=== PATIENT | female | born 2000 | race Caucasian/White ===

== ENCOUNTER 2024-12-03 01:12 | Day surgery (SDC) | payer OTHER, SELFPAY ==
--- NOTE | 2024-11-19 16:36 | SUR.PREOP ---
Addendum entered by Christoph Shearer RN 12/01/24 09:37: Patient says no changes since preop interview. Informed to arrive at 1000 on 12-03-2024 for surgery at noon. Original Note: [facility] has started construction of its new state of the art ER which will open Spring 2026. With this, we anticipate parking may be a challenge for some our surgical patients and families. Parking spaces are limited but are available for all Surgical, obstetrics, and ER patients sharing this lot. If you arrive and find you are having a hard time finding a parking space, please note that we understand the challenges, please drive around the hospital and park near Hospital Entrance [address]. When you enter this entrance, you can ask a volunteer to direct or take you back to the surgical waiting area to check in. We appreciate everyone?s understanding of these expected challenges while we build for your future. Report to the Outpatient Waiting Room, entrance under the green pavilion located off [address], at time _730am on date __11/23/24 . Planned Procedure Time: __930am .? Time changes happen often and if your time is changed the preop area will call you the afternoon before. - You and your visitor will be asked to self-screen and do not enter if you have any COVID symptoms. Please call surgeon if you need to reschedule. - A mask is optional within the hospital at this time. Patients may have clear liquids (water, carbonated beverages, clear teas, apple juice) until 3 hours prior to surgery with a maximum of 20 ounces. - No food from midnight until time of surgery and no smoking, or chewing tobacco (or any form of nicotine). No chewing gum, candy or mints. Take only the following medications with a SIP of water on the morning of surgery: ___None DO NOT STOP ANY OF YOUR OTHER PRESCRIPTION MEDICATIONS PRIOR TO SURGERY EXCEPT THE FOLLOWING Hold all vitamins and supplements for 3 days per anesthesiologist. Medications to discontinue per physician None Date to take last dose___N/a Please no make-up, nail azeri, hairspray, perfume, deodorant, or body powder the day of surgery.? No jewelry (including any body piercings) or valuables the day of surgery, leave them at home.? Please take a shower or bath the night before, or the morning of, surgery with an antibacterial soap.? Wear comfortable, loose fitting clothing.? - Jewelry must be removed prior to entering the operating room.? Rings and piercings that are not removed may be cut off. - The hospital will not accept responsibility for valuables.? - Please leave all valuables, including medications, at home the day of surgery. If you are going home after surgery, a licensed hammer driver must drive you home.? - NO public transportation without another adult if you receive anesthesia. - We recommend that an adult stay with you for 24 hours following discharge. - We also recommend that you do not drive, make important decision, drink alcoholic beverages, or take any drugs that were not prescribed by your health care provider for at least 24 hours after your discharge time. For Pediatric surgeries, we recommend two adults accompany the child home. Follow any additional instructions given to you from your surgeon. Telephone instructions given to _Aliya___and asked if any additional questions and then verbalized understanding. Patient advised to call surgeon office or pre surgery nurse liaison [phone] if any additional questions.
[2024-11-19 16:39] VITALS: BMI 19.8
--- OUTSIDE RECORDS SUMMARY | 2024-11-23 01:08 | XMS_ITS | Clinical Summary ---
Author Organization [facility] Address [address] [place] [id number] Care Team Providers Care Tank Filler Name Role Phone Laurent Barros MD Primary Care Provider [phone] Allergies No known active allergies Medications vitamin, low iron, ( VITAMIN WITH IRON) 27-0.8 MG tablet Take 1 tablet by mouth daily. Active progesterone (ENDOMETRIN) [address] 1 tablet (100 mg total) vaginally 2 (two) times daily. Active Encounters Date Type Department Care Team Description 11/17/2024 5:53 AM CDT - 11/17/2024 10:20 AM CDT [facility] [place] [facility] [address] Pradeep Reyes MD Vaginal Bleeding Discharge Disposition: Home or Self Care (Routine Discharge) 11/17/2024 Travel 10/20/2024 7:17 AM CDT - 10/20/2024 10:00 AM CDT [facility] [place] [facility] [place] [address] Evita Shelley MD Vaginal Bleeding Discharge Disposition: Home or Self Care (Routine Discharge) 10/20/2024 Travel 10/19/2024 1:00 PM CDT - 10/19/2024 11:59 PM CDT Hospital Encounter [place] [address] Ivon Stanford MD Discharge Disposition: Home or Self Care (Routine Discharge) 10/18/2024 3:44 PM CDT - 10/18/2024 11:59 PM CDT Hospital [facility] [place] [facility] [place] [address] Ivon Stanford MD Discharge Disposition: Home or Self Care (Routine Discharge) 10/18/2024 Orders Only [place] [address] [place] [address] Ivon Stanford MD 10/18/2024 Travel 10/05/2024 10:14 AM CDT - 10/05/2024 11:59 PM CDT Hospital Encounter [place] [address] [place] [address] Nevaeh Rivera MD Discharge Disposition: Home or Self Care (Routine Discharge) 10/05/2024 Orders Only [place] [address] [place] [address] Nevaeh Rivera MD 10/05/2024 Travel 09/28/2024 12:40 PM CDT - 09/28/2024 11:59 PM CDT Hospital Encounter [place] [address] [place] [address] oMny Dobbs NP Discharge Disposition: Home or Self Care (Routine Discharge) 09/28/2024 Orders Only [place] [address] [place] [address] Mony Dobbs, MANUFACTURING ENGINEER CHIEF 09/27/2024 4:34 PM CDT - 09/27/2024 11:59 PM CDT Hospital Encounter [place] [address] [place] [address] Mony Dobbs MANUFACTURING ENGINEER CHIEF Discharge Disposition: Home or Self Care (Routine Discharge) 09/27/2024 Travel 09/25/2024 11:25 AM CDT - 09/25/2024 11:59 PM CDT Hospital Encounter [place] [address] [place] [address] Mony Dobbs MANUFACTURING ENGINEER CHIEF Discharge Disposition: Home or Self Care (Routine Discharge) 09/25/2024 Orders Only [place] [address] [place] [place] [address] Mony Dobbs, MANUFACTURING ENGINEER CHIEF 09/25/2024 Travel 09/21/2024 1:14 PM CDT - 09/21/2024 11:59 PM CDT Hospital Encounter [place] [facility] [address] [place] [address] Mony Dobbs NP Discharge Disposition: Home or Self Care (Routine Discharge) 09/21/2024 Travel 09/02/2024 1:25 PM CDT - 09/02/2024 11:59 PM CDT Hospital Encounter [place] [facility] [address] [place] [address] Mony Dobbs NP Discharge Disposition: Home or Self Care (Routine Discharge) 09/02/2024 Orders Only [facility] [address] [place] [address] Mony Dobbs NP 09/02/2024 Travel 08/31/2024 2:00 PM CDT - 08/31/2024 11:59 PM CDT Hospital Encounter [facility] [address] [place] [address] Nevaeh Rivera MD Discharge Disposition: Home or Self Care (Routine Discharge) 08/31/2024 Orders Only [facility] [address] [place] [address] Nevaeh Rivera MD 08/31/2024 Travel from Last 3 Months Family History Medical History Relation Comments No Known Problems Father No Known Problems Mother Relation Status Comments Father Alive Mother Alive Social History Tobacco Use Types Packs/Day Years Used Date Smoking Tobacco: Never Smokeless Tobacco: Never Alcohol Use Standard Drinks/Week Comments No 0 (1 standard drink = 0.6 oz pur e alcohol) AUDIT-C Answer Date Recorded Frequency of Alcohol Consumption Never 01/11/2019 Average Number of Drinks Not on file Frequency of Binge Drinking Not on file 03/2018 Comments Yes Sex and Gender Information Value Date Recorded Sex Assigned at Female 03/17/2024 3:13 PM COMPOSING ROOM SUPERVISOR Legal Sex Female 5:48 PM COMPOSING ROOM SUPERVISOR Gender Identity Not on file Sexual Orientation Not on file Last Filed Vital Signs Vital Sign Reading Time Taken Comments Blood Pressure 103/62 11/17/2024 10:15 AM CDT Pulse 98 11/17/2024 6:01 AM CDT Temperature 36.4 C (97.6 F) 11/17/2024 6:12 AM CDT Respiratory Rate 16 11/17/2024 10:15 AM CDT Oxygen Saturation 100% 11/17/2024 10:15 AM CDT Inhaled Oxygen Concentration - - Weight 61.7 kg (136 lb) 11/17/2024 6:01 AM CDT Height 170.2 cm (5' 7) 11/17/2024 6:01 AM CDT Body Mass Index 21.3 11/17/2024 6:01 AM CDT Plan of Treatment Health Maintenance Due Date Last Done Comments Annual Physical 2005 HPV Vaccines (1 - 3-dose series) 2017 Meningococcal B Vaccine (1 of 2 - Standard) 2018 Hepatitis C 2020 Chlamydia Screening Females ages 16-24 12/24/2022 12/24/2021 DTaP, Tdap and Td Vaccines (6 - Td or Tdap) 09/17/2023 09/16/2013, 08/05/2003, 2002, Additional history exists COVID-19 Vaccine ( season) 2024 Influenza Adult (#1) 2024 12/04/2015, 11/23/2014, 11/23/2013, Additional history exists Cervical Cancer Screening Pap Smear (Age 21 to 29) Every 3 Years 12/24/2024 12/24/2021 Cervical Cancer Screening 12/24/2024 RSV Immunization or 60+ Years (1 - 1-dose 75+ series) 2077 Pneumococcal Vaccine: Pediatrics (0 to 5 Years) and At-Risk Patients (6 to 49 Years) Aged Out 2002, 2002, 2002 No longer eligible based on patient's age to complete this topic Hepatitis B Vaccines Completed 05/12/2003, 2002, 2002 Meningococcal Vaccine Completed 10/29/2019, 014 Hepatitis A Vaccines Aged Out No long er eligible based on patient's age to complete this topic RSV Immunizations Under 20 Months Aged Out No longer eligible based on patient's age to complete this topic Procedures Procedure Name Priority Date/Time Associated Diagnosis Comments US OB TRANSVAG STAT 11/17/2024 9:07 AM CDT TYPE & SCREEN STAT 11/17/2024 6:15 AM CDT POCT GLUCOSE - DOCKED DEVICE Routine 11/17/2024 6:10 AM CDT HC HCG QN STAT 11/17/2024 6:07 AM CDT COMPREHENSIVE METABOLIC PANEL STAT 11/17/2024 6:07 AM CDT PARTIAL THROMBOPLASTIN TIME,PTT STAT 11/17/2024 6:07 AM CDT PROTHROMBIN TIME, VENOUS STAT 11/17/2024 6:07 AM CDT CBC W/DIFF AUTOMATED STAT 11/17/2024 6:07 AM CDT US OB TRANSVAG STAT 10/20/2024 9:00 AM CDT HC URINALYSIS AUTO W/MICRO STAT 10/20/2024 7:50 AM CDT HC HCG QN STAT 10/20/2024 7:46 AM CDT BASIC METABOLIC PANEL STAT 10/20/2024 7:46 AM CDT CBC W/DIFF AUTOMATED STAT 10/20/2024 7:46 AM CDT US OB <14WKS TA+TV Routine 10/19/2024 2: 24 PM CDT 1st trimester screening (HHS/HCC) Encounter for supervision of normal first in first trimester (HHS/HCC) URINE BACTERIA CULTURE Routine 4:15 PM CDT Amenorrhea, unspecified TYPE & SCREEN Routine 10/18/2024 4:10 PM CDT Amenorrhea, unspecified CBC, AUTO, NO DIFF Routine 10/18/2024 4: 10 PM CDT Amenorrhea, unspecified HC HCG QN Routine 10/18/2024 4:10 PM CDT Amenorrhea, unspecified SYPHILIS AB (DIAGNOSTIC) WITH CASCADING REFLEX Routine 10/18/2024 4:10 PM CDT Amenorrhea, unspecified VARICELLA ZOSTER IGG Routine 10/18/2024 4:10 PM CDT Amenorrhea, unspecified MISCELLANEOUS LAB TEST Routine 4:10 PM CDT Amenorrhea, unspecified RUBELLA IGG Routine 10/18/2024 4:10 PM CDT Amenorrhea, unspecified HIV 1 ANTIGEN(S), WITH HIV-1 AND HIV-2 ANTIBODIES Routine 10/18/2024 4:10 PM CDT Amenorrhea, unspecified HEPATITIS B SURFACE AG, EIA Routine 10/18/2024 4:10 PM CDT Amenorrhea, unspecified MISCELLANEOUS LAB TEST Routine 4:10 PM CDT Amenorrhea, unspecified HC HCG QN Routine 10/05/2024 10:17 AM CDT Back pain affecting in first trimester (HHS/HCC) HC HCG QN Routine 09/28/2024 12:46 PM CDT History of miscarriage PROGESTERONE Routine 09/27/2024 4:42 PM CDT History of miscarriage HC HCG QN Routine 09/27/2024 4:42 PM CDT History of miscarriage PROGESTERONE Routine 09/25/2024 11:39 AM CDT History of miscarriage HC HCG QN Routine 09/25/2024 11:39 AM CDT History of miscarriage US PELVIC NON OB COMP TA+TV Routine 09/21/2024 2:15 PM CDT Ovarian cyst, right PROGESTERONE Routine 09/02/2024 1:48 PM CDT History of miscarriage HC HCG QN Routine 09/02/2024 1:48 PM CDT History of miscarriage HC HCG QN Routine 08/31/2024 2:07 PM CDT Irregular menses from Last 3 Months Results * US OB TRANSVAG (11/17/2024 9:07 AM CDT) Only the most recent of2 resultswithin the time period is included. Anatomical Region Laterality Modality Abdomen, Pelvis Ultrasound 11/17/2024 9:53 AM CDT Impressions 11/17/2024 9:57 AM CDT IMPRESSION: 1. Findings compatible with spontaneous . Small amount of heterogeneous material in the endometrial cavity is nonspecific. 2. Unremarkable appearing ovaries. Ordered By: KLEBER NOEL Interpreted By: Roman Harman MD, 11/17/2024 9:53 AM Narrative 11/17/2024 9:57 AM CDT [address] [place] [address] Examination: OB ultrasound. Exam time: 0833 hours. Clinical history: 11 weeks gestational age by dates. Vaginal bleeding. Comparison: 10/20/2024. Technique: Endovaginal grayscale and color Doppler images including spectral analysis. Findings: The uterus measures 11 cm in length. No myometrial abnormality is identified. The previously evident intrauterine gestation is no longer present, compatible with spontaneous . There is some heterogeneous material in the endometrial cavity, nonspecific. Both ovaries are identified. The right ovary measures 3.3 cm in greatest dimension. The left ovary measures 4.2 cm in greatest dimension. Flow to both ovaries is documented on color Doppler with normal appearing spectra. Follicles are present bilaterally. No adnexal mass or fluid collection is identified. Procedure Note Roman Harman MD - 11/17/2024 [facility] [address] [place] [address] Examination: OB ultrasound. Exam time: 0833 hours. Clinical history: 11 weeks gestational age by dates. Vaginal bleeding. Comparison: 10/20/2024. Technique: Endovaginal grayscale and color Doppler images includingspectral analysis. Findings: The uterus measures 11 cm in length. No myometrial abnormalityis identified. The previously evident intrauterine gestation is no longerpresent, compatible with spontaneous . There is some heterogeneousmaterial in the endometrial cavity, nonspecific. Both ovaries areidentified. The right ovary measures 3.3 cm in greatest dimension. Theleft ovary measures 4.2 cm in greatest dimension. Flow to both ovaries isdocumented on color Doppler with normal appearing spectra. Follicles arepresent bilaterally. No adnexal mass or fluid collection is identified. IMPRESSION: 1. Findings compatible with spontaneous . Small amount ofheterogeneous material in the endometrial cavity is nonspecific. 2. Unremarkable appearing ovaries. Ordered By: KLEBER NOEL Interpreted By: Roman Harman MD, 11/17/2024 9:53 AM us Kleber Noel DO ULTRASOUND Final Result * TYPE AND SCREEN (11/17/2024 6:15 AM CDT) Only the most recent of2 resultswithin the time period is included. ABO/RH O POSITIVE 11/17/2024 7:24 AM CDT [facility] ANTIBODY SCREEN NEGATIVE 11/17/2024 7:24 AM CDT [facility] SAMPLE EXPIRATION 11/20/2024,2 359 11/17/2024 7:24 AM CDT [facility] 11/17/2024 6:15 AM CDT us Kleber Noel DO BLOOD BANK TEST ORDERABLES F inal Result [facility] [address] [place] [address], * (ABNORMAL) POCT glucose (11/17/2024 6:10 AM CDT) GLUCOSE POC 140(H) 70 - 99 MG/DL 11/17/2024 6:12 AM CDT [facility] 11/17/2024 6:10 AM CDT us Attending Physician Emergency MD POCT ORDERABLES - DEVICE Final Result Performing Organization Address [facility]/[place] [address], * (ABNORMAL) PARTIAL THROMBOPLASTIN TIME,PTT (11/17/2024 6:07 AM CDT) PTT 20.4(L) 25.1 - 36.5 SEC 11/17/2024 6:23 AM CDT [facility] 11/17/2024 6:07 AM CDT us Kleber Noel DO LABORATORY Final Result Performing Organization Address [facility]/ZIP Co de Phone Number [facility] [address] [place] [address], * PROTIME/INR, VENOUS (11/17/2024 6:07 AM CDT) PROTIME 11.4 9.4 - 12.5 SEC 11/17/2024 6:23 AM CDT [facility] INR 1.0 0.8 - 1.0 11/17/2024 6:23 AM CDT [facility] 11/17/2024 6:07 AM CDT us Kleber Noel DO LABORATORY Final Result Performing Organization Address City/[facility]/ZIP Co de Phone Number [facility] [address] [place] [address], * (ABNORMAL) COMPREHENSIVE METABOLIC PANEL (11/17/2024 6:07 AM CDT) SODIUM S/P/B 137 136 - 145 MMOL/L 11/17/2024 7:06 AM CDT [facility] POTASSIUM S/P/B 3.8 3.5 - 5.1 MMOL/L 11/17/2024 7:06 AM CDT [facility] CHLORIDE S/P/B 102 98 - 107 MMOL/L 11/17/2024 7:06 AM CDT [facility] CO2 23.9 21.0 - 32.0 MMOL/L 11/17/2024 7:06 AM T [facility] GLUCOSE 154(H) 70 - 99 MG/DL 11/17/2024 7:06 AM T [facility] Comment: FASTING GLUCOSE 100 TO 125 MG/DL IS CONSISTENT WITH IMPAIRED FASTING GLUCOSE. FASTING GLUCOSE >125 MG/DL IS CONSISTENT WITH DIABETES. RANDOM GLUCOSE >200 MG/DL WITH HYPERGLYCEMIC SYMPTOMS IS CONSISTENT WITH DIABETES. PER ADA GUIDELINES BUN 13 6 - 24 MG/DL 11/17/2024 7:06 AM T [facility] CREATININE S/P/B 0.78 0.55 - 1.02 MG/DL 11/17/2024 7:06 AM T [facility] CALCIUM S/P/B 8.8 8.4 - 10.5 MG/DL 11/17/2024 7:06 AM T [facility] BILIRUBIN TOTAL S/P/B 0.2 0.2 - 1.0 MG/DL 11/17/2024 7:06 AM T [facility] Comment: THIS ASSAY IS NOT RECOMMENDED FOR PATIENTS UNDERGOING TREATMENT WITH ELTROMBOPAG DUE TO THE POTENTIAL FOR FALSELY ELEVATED RESULTS. ALKALINE PHOSPHATASE S/P/B 32(L) 52 - 144 U/L 11/17/2024 7:06 AM T [facility] AST 16 15 - 37 U/L 11/17/2024 7:06 AM T [facility] ALT 19 14 - 59 U/L 11/17/2024 7:06 AM CDT [facility] TOTAL PROTEIN S/P/B 6.2(L) 6.4 - 8.2 G/DL 11/17/2024 7:06 AM CDT [facility] ALBUMIN S/P/B 3.1(L) 3.4 - 5.0 G/DL 11/17/2024 7:06 AM CDT [facility] ANION GAP 11.1 5.0 - 15.0 MMOL/L 11/17/2024 7:06 AM CDT [facility] OSMOLALITY (CALC) 287 MOSM/KG 025 7:06 AM T [facility] Comment:REFERENCE RANGE NOT ESTABLISHED GFR ESTIMATE >90 >89 ML/MIN/1. 73 M2 11/17/2024 7:06 AM T [facility] GFR NOTES GFR REFERENCE S: 11/17/2024 7:06 AM T [facility] Comment: THE ESTIMATED GFR IS CALCULATED USING THE 2020 CKD-EPI EQUATION. THE FOLLOWING CATEGORIES FOR GRADING RENAL FUNCTION ARE RECOMMENDED BY THE INTERNATIONAL SOCIETY OF NEPHROLOGY (KDIGO 2012 CLINICAL PRACTICE GUIDELINE). G1,NORMAL OR HIGH: >89 ml/min/1.73 m2 G2,MILDLY DECREASED: 60-89 ml/min/1.73 m2 G3A,MILDLY TO MODERATELY DECREASED: 45-59 ml/min/1.73 m2 G3B,MODERATELY TO SEVERELY DECREASED: 30-44 ml/min/1.73 m2 G4,SEVERELY DECREASED: 15-29 ml/min/1.73 m2 G5,KIDNEY FAILURE: <15 ml/min/1.73 m2 11/17/2024 6:07 AM CDT us Kleber Noel DO LABORATORY Final Result [facility] [address] [place] [address], * (ABNORMAL) HCG QUANT (SERUM)-CHORIONIC GONADOTROPIN (11/17/2024 6:07 AM CDT) Only the most recent of9 resultswithin the time period is included. HCG QUANTITATIVE 34,113(H) 0.0 - 6.0 MIU/ML 11/17/2024 7:06 AM CDT [facility] Comment: WEEKS OF REFERENCE RANGES NON- FEMALE 0-6 0.2 - 1 5 - 50 1 - 2 50 - 500 2 - 3 100 - 5000 3 - 4 500 - 10,000 4 - 5 1000 - 50,000 5 - 6 10,000 - 100,000 6 - 8 15,000 - 200,000 2 - 3 MONTHS 10,000 - 100,000 LOW LEVEL HCG VALUES >25 MIU/ML MAY BE INDICATIVE OF EARLY . WHEN BORDERLINE RESULTS ARE ENCOUNTERED, REPEAT TESTING AT 48 HOURS MAY BE INDICATED. 11/17/2024 6:07 AM CDT Kleber Noel DO LABORATORY Final Result [facility] [address] [place] [address], * (ABNORMAL) CBC W/DIFF AUTOMATED (11/17/2024 6:07 AM CDT) Only the most recent of2 resultswithin the time period is included. WBC 12.32(H) 4.00 - 10.80 x10'3/uL 11/17/2024 6:13 AM CDT [facility] RBC 3.51(L) 4.10 - 5.40 x10'6/uL 11/17/2024 6:13 AM CDT [facility] HGB 10.3(L) 12.0 - 16.0 G/DL 11/17/2024 6:13 AM CDT [facility] HCT 31.1(L) 36.0 - 47.0 % 11/17/2024 6:13 AM CDT [facility] MCV 88.6 78.0 - 100.0 FL 11/17/2024 6:13 AM CDT [facility] MCH 29.3 27.0 - 31.0 PG 11/17/2024 6:13 AM CDT [facility] MCHC 33.1 33.0 - 36.0 G/DL 11/17/2024 6:13 AM CDT [facility] RDW 13.0 11.5 - 14.5 % 11/17/2024 6:13 AM CDT [facility] PLT 322 150 - 350 x10'3/uL 11/17/2024 6:13 AM CDT [facility] MPV 10.2 7.4 - 10.4 FL 11/17/2024 6:13 AM CDT [facility] CBC COMMENT NORMAL REFERENCE RANGE NOT ESTABLISHED FOR THE PROPORTIONAL LEUKOCYTE DIFFERENTIAL. 11/17/2024 6:13 AM CDT [facility] NEUTROPHILS % 73.1 % 11/17/2024 6:13 AM CDT [facility] LYMPHOCYTES % 20.1 % 11/17/2024 6:13 AM CDT [facility] MONOCYTES % 4.9 % 11/17/2024 6:13 AM CDT [facility] EOSINOPHILS % 0.8 % 11/17/2024 6:13 AM CDT [facility] BASOPHILS % 0.7 % 11/17/2024 6:13 AM CDT [facility] IMMATURE GRANS % 0.4 % 11/18/19 6:13 AM CDT [facility] NRBC % 0.0 % 11/17/2024 6:13 AM CDT [facility] ABS. NEUTROPHILS 9.00(H) 1.60 - 8.30 x10'3/uL 11/17/2024 6:13 AM CDT [facility] ABS. LYMPHOCYTES 2.48 0.80 - 4.70 x10'3/uL 11/17/2024 6:13 AM CDT [facility] ABS. MONOCYTES 0.60 0.00 - 1.50 x10'3/uL 11/17/2024 6:13 AM CDT [facility] ABS. EOSINOPHILS 0.10 0.00 - 0.40 x10'3/uL 11/17/2024 6:13 AM CDT [facility] ABS. BASOPHILS 0.09 0.00 - 0.20 x10'3/uL 11/17/2024 6:13 AM CDT [facility] ABS. IMMATURE GRANULOCYTES 0.05(H) 0.00 - 0.03 x10'3/uL 11/17/2024 6:13 AM CDT [facility] ABS. NUCLEATED RBC'S 0.00 0.00 - 0.01 x10'3/uL 11/17/2024 6:13 AM CDT [facility] 11/17/2024 6:07 AM CDT us Kleber Noel DO LABORATORY Final Result [facility] [address] [place] [address], * (ABNORMAL) URINALYSIS (10/20/2024 7:50 AM CDT) COLOR (U) STRAW 10/20/2024 9:25 AM CDT [facility] TRANSPARENCY SLIGHTLY CLOUDY 025 9:25 AM CDT [facility] SPECIFIC GRAVITY (U) 1.020 1.000 - 1.025 10/20/2024 9:25 AM CDT [facility] U PH 7.5 5.0 - 8.0 10/20/2024 9:25 AM CDT [facility] LEUKOCYTES (U) NEGATIVE NEGATIVE 10/20/2024 9:25 AM CDT [facility] NITRITES NEGATIVE NEGATIVE 10/20/2024 9:25 AM CDT [facility] PROTEIN RANDOM (U) NEGATIVE NEGATIVE 10/20/2024 9:25 AM CDT [facility] GLUCOSE (U) NEGATIVE NEGATIVE 10/20/2024 9:25 AM CDT [facility] KETONES MG/DL (U) NEGATIVE NEGATIVE 10/20/2024 9:25 AM CDT [facility] UROBILINOGEN 0.2 <1.0 EU/DL 10/20/2024 9:25 AM CDT [facility] BILIRUBIN (U) NEGATIVE NEGATIVE 10/20/2024 9:25 AM CDT [facility] BLOOD (U) NEGATIVE NEGATIVE 10/20/2024 9:25 AM CDT [facility] WBC/HPF NONE SEEN(A) 0 - 5 /HPF 10/20/2024 9:25 AM CDT [facility] EPI/LPF OCCASIONAL /LPF 10/20/2024 9:25 AM CDT [facility] MUCUS PRESENT 10/20/2024 9:25 AM CDT [facility] AMORPHOUS SEDIMENT PHOSPHATES 10/20/2024 9:25 AM CDT [facility] COMMENT (U) OCCASIONAL TRANSITIONAL EPITHELIAL CELLS. 10/20/2024 9:25 AM CDT [facility] URINE SPECIMEN OBTAINED BY CLEAN CATCH PROCEDURE / Unknown 10/20/2024 7:50 AM CDT us Evita Shelley MD URINE ORDERABLES Final Resu lt [facility] [address] [place] [address], * (ABNORMAL) BASIC METABOLIC PANEL (10/20/2024 7:46 AM CDT) SODIUM S/P/B 135(L) 136 - 145 MMOL/L 10/20/2024 8:37 AM CDT [facility] POTASSIUM S/P/B 4.1 3.5 - 5.1 MMOL/L 10/20/2024 8:37 AM CDT [facility] CHLORIDE S/P/B 102 98 - 107 MMOL/L 10/20/2024 8:37 AM CDT [facility] CO2 25.6 21.0 - 32.0 MMOL/L 10/20/2024 8:37 AM CDT [facility] GLUCOSE 86 70 - 99 MG/DL 10/20/2024 8:37 AM CDT [facility] Comment: FASTING GLUCOSE 100 TO 125 MG/DL IS CONSISTENT WITH IMPAIRED FASTING GLUCOSE. FASTING GLUCOSE >125 MG/DL IS CONSISTENT WITH DIABETES. RANDOM GLUCOSE >200 MG/DL WITH HYPERGLYCEMIC SYMPTOMS IS CONSISTENT WITH DIABETES. PER ADA GUIDELINES BUN 10 6 - 24 MG/DL 10/20/2024 8:37 AM CDT [facility] CREATININE S/P/B 0.49(L) 0.55 - 1.02 MG/DL 10/20/2024 8:37 AM CDT [facility] CALCIUM S/P/B 9.0 8.4 - 10.5 MG/DL 10/20/2024 8:37 AM CDT [facility] ANION GAP 7.4 5.0 - 15.0 MMOL/L 10/20/2024 8:37 AM CDT [facility] OSMOLALITY (CALC) 278 MOSM/KG 025 8:37 AM CDT [facility] Comment:REFERENCE RANGE NOT ESTABLISHED GFR ESTIMATE >90 >89 ML/MIN/1. 73 M2 10/20/2024 8:37 AM CDT [facility] GFR NOTES GFR REFERENCE S: 10/20/2024 8:37 AM CDT [facility] Comment: THE ESTIMATED GFR IS CALCULATED USING THE 2020 CKD-EPI EQUATION. THE FOLLOWING CATEGORIES FOR GRADING RENAL FUNCTION ARE RECOMMENDED BY THE INTERNATIONAL SOCIETY OF NEPHROLOGY (KDIGO 2012 CLINICAL PRACTICE GUIDELINE). G1,NORMAL OR HIGH: >89 ml/min/1.73 m2 G2,MILDLY DECREASED: 60-89 ml/min/1.73 m2 G3A,MILDLY TO MODERATELY DECREASED: 45-59 ml/min/1.73 m2 G3B,MODERATELY TO SEVERELY DECREASED: 30-44 ml/min/1.73 m2 G4,SEVERELY DECREASED: 15-29 ml/min/1.73 m2 G5,KIDNEY FAILURE: <15 ml/min/1.73 m2 10/20/2024 7:46 AM CDT us Evita Shelley MD LABORATORY Final Resul t [facility] [address] [place] [address], * US OB <14WKS TA+TV (10/19/2024 2:24 PM CDT) Anatomical Region Laterality Modality Ultrasound 10/19/2024 5:11 PM CDT Impressions 10/19/2024 5:15 PM CDT IMPRESSION: 1. Single, living, intrauterine at 6 weeks 5 days ([place]LIN 06/09/2025) on today?s ultrasound. No dating discrepancy with available clinical dating. 2. Recommend anatomic survey at 20-22 weeks gestational age. Referred By: IVON STANFORD Interpreted By: Parisa Isidro DO, 10/19/2024 5:11 PM Narrative 10/19/2024 5:15 PM CDT [address] [place] [address] EXAMINATION: US OB <14WKS TA+TV INDICATION: AMENORRHEA Assigned clinical dating (MARLIN): 06/08/2025 Last menstrual period: 09/01/2024 COMPARISON(S): None. TECHNIQUE: Transabdominal and transvaginal ultrasound evaluation of maternal and anatomic structures was performed using grayscale and color Doppler modalities. FINDINGS: UTERUS: 10.6 x 6.1 x 6.8 cm. Myometrium is within normal limits. Cervix is long and closed. Gestational Sac: Present. No perigestational hemorrhage. Yolk Sac: Present with normal morphology. Fetus/Embryo: Present. Cardiac activity: 121 bpm. Neeses rump length is 0.745 cm corresponding to estimated gestational age of 6 weeks 5 days RIGHT OVARY: Measures 2.8 x 2.5 x 2.0 cm. Normal morphology. Normal color Doppler. LEFT OVARY: Measures 2.4 x 3.1 x 3.7 cm. Normal morphology. Normal color Doppler. OTHER: No free fluid in the cul-de-sac. Procedure Note Parisa Isidro DO - 10/19/[address] [place] [address] EXAMINATION: US OB <14WKS TA+TV INDICATION: AMENORRHEA Assigned clinical dating (MARLIN): 06/08/2025 Last menstrual period: 09/01/2024 COMPARISON(S): None. TECHNIQUE: Transabdominal and transvaginal ultrasound evaluation ofmaternal and anatomic structures was performed using grayscale andcolor Doppler modalities. FINDINGS: UTERUS: 10.6 x 6.1 x 6.8 cm. Myometrium is within normal limits. Cervixis long and closed. Gestational Sac: Present. No perigestational hemorrhage. Yolk Sac: Present with normal morphology. Fetus/Embryo: Present. Cardiac activity: 121 bpm. Neeses rump length is 0.745 cm corresponding to estimated gestational ageof 6 weeks 5 days RIGHT OVARY: Measures 2.8 x 2.5 x 2.0 cm. Normal morphology. Normal colorDoppler. LEFT OVARY: Measures 2.4 x 3.1 x 3.7 cm. Normal morphology. Normal colorDoppler. OTHER: No free fluid in the cul-de-sac. IMPRESSION: 1. Single, living, intrauterine at 6 weeks 5 days (EDD4/) on today?s ultrasound. No dating discrepancy with availableclinical dating. 2. Recommend anatomic survey at 20-22 weeks gestational age. Referred By: IVON STANFORD Interpreted By: Parisa Isidro DO, 10/19/2024 5:11 PM us Ivon Stanford MD ULTRASOUND Final Result * URINE BACTERIA CULTURE (10/18/2024 4:15 PM CDT) SPEC DESCRIPTION URINE CLEAN CATCH 10/18/2024 4:01 PM CDT [facility] SPECIAL REQUESTS NO SPECIAL REQUEST 10/18/2024 4:01 PM CDT [facility] CULTURE RESULT FEW CONTAMINANTS 10/11 7:29 AM CDT [facility] CULTURE RESULT <10,000 CFU/mL STREPTOCOCCUS AGALACTIAE (GROUP B) 10/22/2024 7:29 AM CDT [facility] CULTURE RESULT BETA STREPTOCOCCUS GROUP B WAS IDENTIFIED AMONG THE FEW CONTAMINANTS. ALTHOUGH FINDINGS ARE CONSISTENT WITH CONTAMINATION, PRESENCE OF BETA STREPTOCOCCUS GROUP B IN A PATIENT OF CHILD BEARING AGE COULD BE POTENTIALLY CLINICALLY SIGNIFICANT. SUSCEPTIBILITIES WERE PERFORMED. 10/22/2024 7:29 AM CDT [facility] URINE SPECIMEN OBTAINED BY CLEAN CATCH PROCEDURE / Unknown 10/18/2024 4:15 PM CDT 10/18/2024 7:12 PM CDT Narrative Organism Antibiotic Method Susceptibility Streptococcus agalactiae (group b) AMPICILLIN LEDY (V ITEK) Sensitive Streptococcus agalactiae (group b) CEFTRIAXONE LEDY (V ITEK) Sensitive Streptococcus agalactiae (group b) CEFOTAXIME LEDY (V ITEK) Sensitive Streptococcus agalactiae (group b) PENICILLIN G LEDY (V ITEK) Sensitive Streptococcus agalactiae (group b) TIGECYCLINE LEDY (V ITEK) Sensitive Streptococcus agalactiae (group b) VANCOMYCIN LEDY (V ITEK) Sensitive Ivon Stanford MD MICROBIOLOGY - GENERAL ORDERABL ES Final Result Performing Organization Address [facility] Co de Phone Number [facility] [address] [place] [address], [place] [phone] [facility] [address] [place] [address], [place] [phone] * SYPHILIS AB (RPR) DIAGNOSTIC WITH CASCADING REFLEX (10/18/2024 4:10 PM CDT) [facility] SYPHILIS IGG IGM AB NON-REACTI VE NON-REACTI VE 10/18/2024 9:08 PM CDT [facility] Comment: No serologic evidence of syphilis. No follow-up necessary unless clinically indicated. 10/18/2024 4:10 PM CDT Ivon Stanford MD LABORATORY Final Result Performing Organization Address [facility] Co de Phone Number [facility] [address] [place] [address], [phone] * HIV 1 ANTIGEN(S), WITH HIV-1 AND HIV-2 ANTIBODIES (10/18/2024 4:10 PM CDT) HIV 1/2 AB+ HIV1 P24 AG NON-REACTI VE NON-REACTI VE 10/18/2024 9:36 PM CDT [facility] Comment:HIV 1 p24 Ag and HIV 1/ HIV 2 Ab not detected. 10/18/2024 4:10 PM CDT us Ivon Stanford MD LABORATORY Final Result Performing Organization Address City/[facility]/ZIP Co de Phone Number [facility] [address] [place] [address], [place] [phone] * VARICELLA ZOSTER IGG (10/18/2024 4:10 PM CDT) VARICELLA ZOSTER IGG EIA POSITIVE 10/19/2024 1:44 PM CDT [facility] Comment:IN THE ABSENCE OF AC PASCUA YAQUI SYMPTOMS, A POSITIVE RESULT SUGGESTS PAST IMMUNITY. 10/18/2024 4:10 PM CDT us Ivon Stanford MD LABORATORY Final Result Performing Organization Address [facility] Co de Phone Number [facility] [address] [place] [address], [place] [phone] * RUBELLA IGG (10/18/2024 4:10 PM CDT) RUBELLA IGG AB POSITIVE 10/19/2024 1:43 PM CDT [facility] Comment:IN THE ABSENCE OF AC PASCUA YAQUI SYMPTOMS, A POSITIVE RESULT SUGGESTS PAST IMMUNITY. 10/18/2024 4:10 PM CDT us Ivon Stanford MD LABORATORY Final Result Performing Organization Address City/[facility] Co de Phone Number [facility] [address] [place] [address], [place] [phone] * MISCELLANEOUS LAB TEST (10/18/2024 4:10 PM CDT) Only the most recent of2 resultswithin the time period is included. TEST NAME: [id number] PARVOVIRUS B19 ANTIBODIES 10/18/2024 4:20 PM CDT [facility] SPECIMEN TYPE SERUM ROOM TEMP 10/18/2024 4:20 PM CDT [facility] TEST RESULT: Flexitest 1 10/20/2024 8:19 PM CDT [facility] Comment: Flexitest 1 Parvovirus B19 Antibodies (IgG, IgM) Parvovirus B19 Ab IgG 7.2 H <0.9 Parvovirus B19 Ab IgM 0.2 <0.9 Reference Range: <0.9 Negative 0.9-1.1 Equivocal >1.1 Positive IgG persists for years and provides life-long immunity. Results from any one IgM assay should not be used as a sole determinant of a current or recent infection. Because IgM tests can yield false positive results and low levels of IgM antibody may persist for months post infection, reliance on a single test result could be misleading. If an acute infection is suspected, consider obtaining a new specimen and submit for both IgG and IgM testing in two or more weeks. To diagnose current infection, consider Parvovirus B19 DNA, PCR. Test Performed by Nehal Penaloza, [employer] [facility], [address] [place] [address] Ja Portillo M.D., Ph.D., Director of Laboratories , [facility] [id number] 10/18/2024 4:10 PM CDT us Ivon Stanford MD LABORATORY Final Result [facility] [id number] [place], [place] , [facility] [place] [address], * HEPATITIS B SURFACE AG, EIA (10/18/2024 4:10 PM CDT) HEPATITIS B SURFACE AG NON-REACTI VE NON-REACTI VE 10/18/2024 7:29 PM CDT [facility] Comment:HBsAg NOT DETECTED. 10/18/2024 4:10 PM CDT Ivon Stanford MD LABORATORY Final Result [facility] [address] [place] [address], [phone] * (ABNORMAL) CBC, AUTO, NO DIFF (10/18/2024 4:10 PM CDT) WBC 8.67 4.00 - 10.80 x10'3/uL 10/18/2024 4:25 PM CDT [facility] RBC 4.01(L) 4.10 - 5.40 x10'6/uL 10/18/2024 4:25 PM CDT [facility] HGB 11.8(L) 12.0 - 16.0 G/DL 10/18/2024 4:25 PM CDT [facility] HCT 35.1(L) 36.0 - 47.0 % 10/18/2024 4:25 PM CDT [facility] MCV 87.5 78.0 - 100.0 FL 10/18/2024 4:25 PM CDT [facility] MCH 29.4 27.0 - 31.0 PG 10/18/2024 4:25 PM CDT [facility] MCHC 33.6 33.0 - 36.0 G/DL 10/18/2024 4:25 PM CDT [facility] RDW 12.7 11.5 - 14.5 % 10/18/2024 4:25 PM CDT [facility] PLT 300 150 - 350 x10'3/uL 10/18/2024 4:25 PM CDT [facility] MPV 10.2 7.4 - 10.4 FL 10/18/2024 4:25 PM CDT [facility] 10/18/2024 4:10 PM CDT us Ivon Stanford MD LABORATORY Final Result Performing Organization Address [facility] Co de Phone Number [facility] [address] [place] [address], [place] [phone] * PROGESTERONE (09/27/2024 4:42 PM CDT) Only the most recent of3 resultswithin the time period is included. PROGESTERONE 14.0 NG/ML 09/27/2024 7:53 PM CDT [facility] Comment: FOLLIC PHASE: 0.2 TO 1.7 ng/mL LUTEAL PHASE: 2.3 TO 24.2 ng/mL POST MENAPAUSAL: <0.2 TO 0.9 ng/mL 1ST TRIMESTER: 11.4 TO 41.0 ng/mL 2ND TRIMESTER: 13.9 TO 156.0 ng/mL 3RD TRIMESTER: 51.4 TO >200.0 ASSAY PERFORMED BY CHEMILUMINESCENCE METHODOLOGY USING [employer]. PATIENT RESULTS DETERMINED BY ASSAYS USING DIFFERENT MANUFACTURERS FOR METHODS MAY NOT BE COMPARABLE. 09/27/2024 4:42 PM CDT us Mony Dobbs NP LABORATORY Final Resul t Performing Organization Address City/[facility] Co de Phone Number [facility] [address] [place] [address], [place] [phone] * US PELVIC NON OB COMP TA+TV (09/21/2024 2:15 PM CDT) Anatomical Region Laterality Modality Pelvis Ultrasound 09/21/2024 2:42 PM CDT Impressions 09/21/2024 2:44 PM CDT IMPRESSION: Essentially unremarkable. Ordered By: MONY DOBBS Interpreted By: Roman Harman MD, 09/21/2024 2:42 PM Narrative 09/21/2024 2:44 PM CDT [address] [place] [address] Examination: Transabdominal and transvaginal pelvic ultrasound. Exam time: 1339 hours. Clinical history: Follow-up of right ovarian cysts. Comparison: 04/28/2024. Technique: Grayscale and color Doppler images including spectral analysis. Endovaginal scanning was performed to better visualize the endometrium and the adnexa. Findings: The uterus measures 8.4 cm in length. No myometrial abnormality is identified. Endometrial stripe thickness is 8 mm. Both ovaries are identified. The right ovary measures 3.4 cm in greatest dimension. The left ovary measures 3.7 cm in greatest dimension. Flow to both ovaries is documented on color Doppler with normal appearing spectra. Follicles are present bilaterally. Mildly hyperechoic structure in the left ovary is compatible with a corpus albicans. Previously evident right ovarian cysts have resolved. No adnexal mass or fluid collection is identified. Procedure Note Roman Harman MD - 09/21/[address] [place] [address] Examination: Transabdominal and transvaginal pelvic ultrasound. Exam time: 1339 hours. Clinical history: Follow-up of right ovarian cysts. Comparison: 04/28/2024. Technique: Grayscale and color Doppler images including spectral analysis.Endovaginal scanning was performed to better visualize the endometrium andthe adnexa. Findings: The uterus measures 8.4 cm in length. No myometrial abnormalityis identified. Endometrial stripe thickness is 8 mm. Both ovaries areidentified. The right ovary measures 3.4 cm in greatest dimension. Theleft ovary measures 3.7 cm in greatest dimension. Flow to both ovaries isdocumented on color Doppler with normal appearing spectra. Follicles arepresent bilaterally. Mildly hyperechoic structure in the left ovary iscompatible with a corpus albicans. Previously evident right ovarian cystshave resolved. No adnexal mass or fluid collection is identified. IMPRESSION: Essentially unremarkable. Ordered By: MONY DOBBS Interpreted By: Roman Harman MD, 09/21/2024 2:42 PM Mony Jefferson [employer]URING ENGINE[employer] CHIEF ULTRASOUND Final Resul t from Last 3 Months Insurance [employer] MEDICAID [employer] [facility] AETNA MEDICAID Care Teams Tank Filler Relationship Specialty Start Date End Date Laurent Barros MD [address] [place] [address] TANK YOUNG [id number] PCP - General FAMILY PRACTICE 11/17/24
--- OUTSIDE RECORDS SUMMARY | 2024-12-03 01:16 | XMS_ITS | Clinical Summary ---
Author Organization [facility] Address [address] [place] [id number] Care Team Providers Care Technical Producer Name Role Phone Laurent Barros MD Primary Care Provider [phone] Allergies No known active allergies Medications vitamin, low iron, ( VITAMIN WITH IRON) 27-0.8 MG tablet Take 1 tablet by mouth daily. Active progesterone (ENDOMETRIN) [address] 1 tablet (100 mg total) vaginally 2 (two) times daily. Active Encounters Date Type Department Care Team Description 11/26/2024 1:30 PM CDT - 11/26/2024 11:59 PM CDT Hospital En[facility] [address] [place] [address] Ivon Stanford MD Discharge Disposition: Home or Self Care (Routine Discharge) 11/26/2024 1:30 PM CDT Hospital Encounter [facility] [place] [place] [address] Ivon Stanford MD Discharge Disposition: Home or Self Care (Routine Discharge) 11/26/2024 Orders [place] [facility] [place] [address] Ivon Stanford MD 11/26/2024 Travel 11/17/2024 5:53 AM CDT - 11/17/2024 10:20 AM CDT [facility] [address] [place] [address] Pradeep Reyes MD Vaginal Bleeding Discharge Disposition: Home or Self Care (Routine Discharge) 11/17/2024 Travel 10/20/2024 7:17 AM CDT - 10/20/2024 10:00 AM CDT [facility] [address] [place] [address] Evita Shelley MD Vaginal Bleeding Discharge Disposition: Home or Self Care (Routine Discharge) 10/20/2024 Travel 10/19/2024 1:00 PM CDT - 10/19/2024 11:59 PM CDT Hospital Encounter [facility] [address] [place] [address] Ivon Stanford MD Discharge Disposition: Home or Self Care (Routine Discharge) 10/18/2024 3:44 PM CDT - 10/18/2024 11:59 PM CDT Hospital Encounter [facility] [place] [address] [address] Ivon Stanford MD Discharge Disposition: Home or Self Care (Routine Discharge) 10/18/2024 Orders Only [place] [address] [place] [address] Ivon Stanford MD 10/18/2024 Travel 10/05/2024 10:14 AM CDT - 10/05/2024 11:59 PM CDT Hospital Encounter [place] [address] [place] [address] [address] Nevaeh Rivera MD Discharge Disposition: Home or Self Care (Routine Discharge) 10/05/2024 Orders Only [facility] [place] [address] [address] Nevaeh Rivera MD 10/05/2024 Travel 09/28/2024 12:40 PM CDT - 09/28/2024 11:59 PM CDT Hospital Encounter [place] [address] [place] [address] [address] Mony Dobbs NP Discharge Disposition: Home or Self Care (Routine Discharge) 09/28/2024 Orders Only [facility] [address] [place] [address] [address] Mony Dobbs, STOCK DIGGER 09/27/2024 4:34 PM CDT - 09/27/2024 11:59 PM CDT Hospital En[facility] [address] [place] [address] [address] Mony Dobbs STOCK DIGGER Discharge Disposition: Home or Self Care (Routine Discharge) 09/27/2024 Travel 09/25/2024 11:25 AM CDT - 09/25/2024 11:59 PM CDT Hospital Encounter [place] [address] [facility] [place] [address] Mony Dobbs STOCK DIGGER Discharge Disposition: Home or Self Care (Routine Discharge) 09/25/2024 Orders Only [address] [place] [address] Mony Dobbs STOCK DIGGER 09/25/2024 Travel 09/21/2024 1:14 PM CDT - 09/21/2024 11:59 PM CDT Hospital Encounter [address] [place] [address] Mony Dobbs, STOCK DIGGER Discharge Disposition: Home or Self Care (Routine Discharge) 09/21/2024 Travel 09/02/2024 1:25 PM CDT - 09/02/2024 11:59 PM CDT Hospital Encounter [address] [place] [address] Mony Dobbs STOCK DIGGER Discharge Disposition: Home or Self Care (Routine Discharge) 09/02/2024 Orders Only [address] [place] [address] Mony Dobbs STOCK DIGGER 09/02/2024 Travel from Last 3 Months Family History [...] Average Number of Drinks Not on file 019 Frequency of Binge Drinking Not on file 03/2018 Comments Yes Sex and Gender Information Value Date Recorded Sex Assigned at Female 03/17/2024 3:13 PM [employer]BILE [employer]ER Legal Sex Female 5:48 PM [employer]BILE PET [employer]ER Gender Identity Not on file Sexual Orientation [...] 08/05/2003, 2002, Additional history exists COVID-19 Vaccine (2024- season) 2024 Influenza Adult (#1) 2024 12/04/2015, [...] Name Priority Date/Time Associated Diagnosis Comments US PELVIC NON OB COMP TV Routine 11/26/2024 2:24 PM CDT Incomplete spontaneous (HHS/HCC) HC HCG QN Routine 11/26/2024 1:37 PM CDT Spontaneous without complications, incomplete (HHS/HCC) US OB TRANSVAG STAT 11/17/2024 9:07 AM [...] 2: 24 PM CDT 1st trimester screening ([facility]) Encounter for supervision of normal first in first trimester ([facility]) URINE BACTERIA CULTURE Routine 4:15 PM CDT [...] CDT Back pain affecting in first trimester ([facility]) HC HCG QN Routine 09/28/2024 12:46 PM [...] 09/02/2024 1:48 PM CDT History of miscarriage from Last 3 Months Results * US PELVIC NON OB COMP TV (11/26/2024 2:24 PM CDT) Anatomical Region Laterality Modality Pelvis Ultrasound 11/26/2024 3:11 PM CDT Impressions 11/26/2024 3:28 PM CDT IMPRESSION: 1. Persistent heterogeneous endometrial contents. Retained products of conception cannot be excluded. 2. Unremarkable appearing ovaries. Ordered By: IVON STANFORD Interpreted By: Roman Harman MD, 11/26/2024 3:11 PM Narrative 11/26/2024 3:[address] PM [address]T [address] [place] [address] Examination: Pelvic ultrasound. Exam time: 1347 hours. Clinical history: Status post miscarriage, 11/17/2024. Ongoing vaginal bleeding. Comparison: 11/17/2024. Technique: Endovaginal grayscale and color Doppler images including spectral analysis. Findings: The uterus measures 8.8 cm in length. No myometrial abnormality is identified. Heterogeneous echogenic material is present in the endometrial cavity. Retained products of conception cannot be excluded. Both ovaries are identified. The right ovary measures 3.3 cm in greatest dimension. The left ovary measures 4.3 cm in greatest dimension. Flow to both ovaries is documented on color Doppler with normal appearing spectra. A few follicles are present. No adnexal mass or fluid collection is identified. Procedure Note Roman Harman MD - 11/26/2024 [facility] [address] [place] [address] Examination: Pelvic ultrasound. Exam time: 1347 hours. Clinical history: Status post miscarriage, 11/17/2024. Ongoing vaginalbleeding. Comparison: 11/17/2024. Technique: Endovaginal grayscale and color Doppler images includingspectral analysis. Findings: The uterus measures 8.8 cm in length. No myometrial abnormalityis identified. Heterogeneous echogenic material is present in theendometrial cavity. Retained products of conception cannot be excluded.Both ovaries are identified. The right ovary measures 3.3 cm in greatestdimension. The left ovary measures 4.3 cm in greatest dimension. Flow toboth ovaries is documented on color Doppler with normal appearing spectra.A few follicles are present. No adnexal mass or fluid collection isidentified. IMPRESSION: 1. Persistent heterogeneous endometrial contents. Retained products ofconception cannot be excluded. 2. Unremarkable appearing ovaries. Ordered By: IVON STANFORD Interpreted By: Roman Harman MD, 11/26/2024 3:11 PM us Ivon Stanford MD ULTRASOUND Final Result * (ABNORMAL) HCG QUANT (SERUM)-CHORIONIC GONADOTROPIN (11/26/2024 1:37 PM CDT) Only the most recent of9 resultswithin the time period is included. HCG QUANTITATIVE 237(H) 0.0 - 6.0 MIU/ML 11/26/2024 2:05 PM CDT [facility] Comment: WEEKS OF REFERENCE RANGES NON- [...] TESTING AT 48 HOURS MAY BE INDICATED. 11/26/2024 1:37 PM CDT us Ivon Stanford MD LABORATORY Final Result [facility] [address] [place] [address], * US OB TRANSVAG (11/17/2024 9:07 AM [...] 9:53 AM Narrative 11/17/2024 9:57 AM CDT [facility] [address] [place] [address] Examination: OB ultrasound. Exam time: 0833 hours. [...] Procedure Note Roman Harman MD - 11/17/2024 [facility] [address] [place] [address] Examination: OB ultrasound. Exam time: 0833 hours. [...] ABO/RH O POSITIVE 11/17/2024 7:24 AM CDT [facility] ANTIBODY SCREEN NEGATIVE 11/17/2024 7:24 AM CDT [facility] SAMPLE EXPIRATION 11/20/2024,2 359 11/17/2024 7:24 AM CDT [facility] 11/17/2024 6:15 AM CDT us Kleber Noel DO BLOOD BANK TEST ORDERABLES F inal Result Performing Organization Address [facility] Co de Phone Number [facility] [address] [place] [address], * (ABNORMAL) POCT glucose (11/17/2024 6:10 AM CDT) GLUCOSE POC 140(H) 70 - 99 MG/DL 11/17/2024 6:12 AM CDT [facility] 11/17/2024 6:10 AM CDT Attending Physician Emergency MD POCT ORDERABLES - DEVICE Final Result Performing Organization Address [facility] Co de Phone Number [facility] [address] [place] [address], * (ABNORMAL) PARTIAL THROMBOPLASTIN TIME,PTT (11/17/2024 6:07 AM CDT) PTT 20.4(L) 25.1 - 36.5 SEC 11/17/2024 6:23 AM CDT [facility] 11/17/2024 6:07 AM CDT us Kleber Noel DO LABORATORY Final Result Performing Organization Address [facility] de Phone Number [facility] [address] [place] [address], * PROTIME/INR, VENOUS (11/17/2024 6:07 AM CDT) PROTIME 11.4 9.4 - 12.5 SEC 11/17/2024 6:23 AM CDT [facility] INR 1.0 0.8 - 1.0 11/17/2024 6:23 AM CDT [facility] 11/17/2024 6:07 AM CDT us Kleber Noel DO LABORATORY Final Result [facility] [address] [place] [address], * (ABNORMAL) COMPREHENSIVE METABOLIC PANEL (11/17/2024 6:07 AM CDT) SODIUM S/P/B 137 136 - 145 MMOL/L 11/17/2024 7:06 AM CDT [facility] POTASSIUM S/P/B 3.8 3.5 - 5.1 MMOL/L 11/17/2024 7:06 AM CDT [facility] CHLORIDE S/P/B 102 98 - 107 MMOL/L 11/17/2024 7:06 AM CDT [facility] CO2 23.9 21.0 - 32.0 MMOL/L 11/17/2024 7:06 AM CDT [facility] GLUCOSE 154(H) 70 - 99 MG/DL 11/17/2024 7:06 AM CDT [facility] Comment: FASTING GLUCOSE 100 TO 125 MG/DL IS CONSISTENT WITH IMPAIRED FASTING GLUCOSE. FASTING GLUCOSE >125 MG/DL IS CONSISTENT WITH DIABETES. RANDOM GLUCOSE >200 MG/DL WITH HYPERGLYCEMIC SYMPTOMS IS CONSISTENT WITH DIABETES. PER ADA GUIDELINES BUN 13 6 - 24 MG/DL 11/17/2024 7:06 AM CDT [facility] CREATININE S/P/B 0.78 0.55 - 1.02 MG/DL 11/17/2024 7:06 AM CDT [facility] CALCIUM S/P/B 8.8 8.4 - 10.5 MG/DL 11/17/2024 7:06 AM CDT [facility] BILIRUBIN TOTAL S/P/B 0.2 0.2 - 1.0 MG/DL 11/17/2024 7:06 AM T [facility] Comment: THIS ASSAY IS NOT RECOMMENDED FOR PATIENTS UNDERGOING TREATMENT WITH ELTROMBOPAG DUE TO THE POTENTIAL FOR FALSELY ELEVATED RESULTS. ALKALINE PHOSPHATASE S/P/B 32(L) 52 - 144 U/L 11/17/2024 7:06 AM CDT [facility] AST 16 15 - 37 U/L 11/17/2024 7:06 AM CDT [facility] ALT 19 14 - 59 U/L 11/17/2024 7:06 AM CDT [facility] TOTAL PROTEIN S/P/B 6.2(L) 6.4 - 8.2 G/DL 11/17/2024 7:06 AM CDT [facility] ALBUMIN S/P/B 3.1(L) 3.4 - 5.0 G/DL 11/17/2024 7:06 AM CDT [facility] ANION GAP 11.1 5.0 - 15.0 MMOL/L 11/17/2024 7:06 AM CDT [facility] OSMOLALITY (CALC) 287 MOSM/KG 025 7:06 AM CDT [facility] Comment:REFERENCE RANGE NOT ESTABLISHED GFR ESTIMATE >90 >89 ML/MIN/1. 73 M2 11/17/2024 7:06 AM CDT [facility] GFR NOTES GFR REFERENCE S: 11/17/2024 7:06 AM T [facility] Comment: THE ESTIMATED GFR IS CALCULATED [...] us Kleber Noel DO LABORATORY Final Result [facility] [address] [place] [address], * (ABNORMAL) CBC W/DIFF AUTOMATED (11/17/2024 6:07 AM CDT) Only the most recent of2 resultswithin the time period is included. WBC 12.32(H) 4.00 - 10.80 x10'3/uL 11/17/2024 6:13 AM CDT [facility] RBC 3.51(L) 4.10 - 5.40 x10'6/uL 11/17/2024 6:13 AM CDT [facility] HGB 10.3(L) 12.0 - 16.0 G/DL 11/17/2024 6:13 AM CDT [facility] HCT 31.1(L) 36.0 - 47.0 % 11/17/2024 6:13 AM CDT [facility] MCV 88.6 78.0 - 100.0 FL 11/17/2024 6:13 AM CDT [facility] MCH 29.3 27.0 - 31.0 PG 11/17/2024 6:13 AM CDT [facility] MCHC 33.1 33.0 - 36.0 G/DL 11/17/2024 6:13 AM CDT [facility] RDW 13.0 11.5 - 14.5 % 11/17/2024 6:13 AM CDT [facility] PLT 322 150 - 350 x10'3/uL 11/17/2024 6:13 AM CDT [facility] MPV 10.2 7.4 - 10.4 FL 11/17/2024 6:13 AM CDT [facility] CBC COMMENT NORMAL REFERENCE RANGE NOT ESTABLISHED FOR THE PROPORTIONAL LEUKOCYTE DIFFERENTIAL. 11/17/2024 6:13 AM CDT [facility] NEUTROPHILS % 73.1 % 11/17/2024 6:13 AM CDT [facility] LYMPHOCYTES % 20.1 % 11/17/2024 6:13 AM CDT [facility] MONOCYTES % 4.9 % 11/17/2024 6:13 AM CDT [facility] EOSINOPHILS % 0.8 % 11/17/2024 6:13 AM CDT [facility] BASOPHILS % 0.7 % 11/17/2024 6:13 AM CDT [facility] IMMATURE GRANS % 0.4 % 11/18/19 6:13 AM CDT [facility] NRBC % 0.0 % 11/17/2024 6:13 AM CDT [facility] ABS. NEUTROPHILS 9.00(H) 1.60 - 8.30 x10'3/uL 11/17/2024 6:13 AM CDT [facility] ABS. LYMPHOCYTES 2.48 0.80 - 4.70 x10'3/uL 11/17/2024 6:13 AM CDT [facility] ABS. MONOCYTES 0.60 0.00 - 1.50 x10'3/uL 11/17/2024 6:13 AM CDT [facility] ABS. EOSINOPHILS 0.10 0.00 - 0.40 x10'3/uL 11/17/2024 6:13 AM CDT [facility] ABS. BASOPHILS 0.09 0.00 - 0.20 x10'3/uL 11/17/2024 6:13 AM CDT [facility] ABS. IMMATURE GRANULOCYTES 0.05(H) 0.00 - 0.03 x10'3/uL 11/17/2024 6:13 AM CDT [facility] ABS. NUCLEATED RBC'S 0.00 0.00 - 0.01 x10'3/uL 11/17/2024 6:13 AM CDT [facility] 11/17/2024 6:07 AM CDT us Kleber Noel DO LABORATORY Final Result [facility] [address] [place] [address], * (ABNORMAL) URINALYSIS (10/20/2024 7:50 AM CDT) COLOR (U) STRAW 10/20/2024 9:25 AM CDT [facility] TRANSPARENCY SLIGHTLY CLOUDY 025 9:25 AM CDT [facility] SPECIFIC GRAVITY (U) 1.020 1.000 - 1.025 10/20/2024 9:25 AM CDT [facility] U PH 7.5 5.0 - 8.0 10/20/2024 9:25 AM CDT [facility] LEUKOCYTES (U) NEGATIVE NEGATIVE 10/20/2024 9:25 AM CDT [facility] NITRITES NEGATIVE NEGATIVE 10/20/2024 9:25 AM CDT [facility] PROTEIN RANDOM (U) NEGATIVE NEGATIVE 10/20/2024 9:25 AM CDT [facility] GLUCOSE (U) NEGATIVE NEGATIVE 10/20/2024 9:25 AM CDT [facility] KETONES MG/DL (U) NEGATIVE NEGATIVE 10/20/2024 9:25 AM CDT [facility] UROBILINOGEN 0.2 <1.0 EU/DL 10/20/2024 9:25 AM CDT [facility] BILIRUBIN (U) NEGATIVE NEGATIVE 10/20/2024 9:25 AM CDT [facility] BLOOD (U) NEGATIVE NEGATIVE 10/20/2024 9:25 AM CDT [facility] WBC/HPF NONE SEEN(A) 0 - 5 /HPF 10/20/2024 9:25 AM CDT [facility] EPI/LPF OCCASIONAL /LPF 10/20/2024 9:25 AM CDT [facility] MUCUS PRESENT 10/20/2024 9:25 AM CDT [facility] AMORPHOUS SEDIMENT PHOSPHATES 10/20/2024 9:25 AM CDT [facility] COMMENT (U) OCCASIONAL TRANSITIONAL EPITHELIAL CELLS. 10/20/2024 9:25 AM CDT [facility] URINE SPECIMEN OBTAINED BY CLEAN CATCH PROCEDURE / Unknown 10/20/2024 7:50 AM CDT us Evita Shelley MD URINE ORDERABLES Final Resu lt [facility] [address] [place] [address], * (ABNORMAL) BASIC METABOLIC PANEL (10/20/2024 7:46 AM CDT) [facility] Signature SODIUM S/P/B 135(L) 136 - 145 MMOL/L 10/20/2024 8:37 AM CDT [facility] POTASSIUM S/P/B 4.1 3.5 - 5.1 MMOL/L 10/20/2024 8:37 AM CDT [facility] CHLORIDE S/P/B 102 98 - 107 MMOL/L 10/20/2024 8:37 AM CDT [facility] CO2 25.6 21.0 - 32.0 MMOL/L 10/20/2024 8:37 AM CDT [facility] GLUCOSE 86 70 - 99 MG/DL 10/20/2024 8:37 AM T [facility] Comment: FASTING GLUCOSE 100 TO 125 MG/DL IS CONSISTENT WITH IMPAIRED FASTING GLUCOSE. FASTING GLUCOSE >125 MG/DL IS CONSISTENT WITH DIABETES. RANDOM GLUCOSE >200 MG/DL WITH HYPERGLYCEMIC SYMPTOMS IS CONSISTENT WITH DIABETES. PER ADA GUIDELINES BUN 10 6 - 24 MG/DL 10/20/2024 8:37 AM CDT [facility] CREATININE S/P/B 0.49(L) 0.55 - 1.02 MG/DL 10/20/2024 8:37 AM CDT [facility] CALCIUM S/P/B 9.0 8.4 - 10.5 MG/DL 10/20/2024 8:37 AM T [facility] ANION GAP 7.4 5.0 - 15.0 MMOL/L 10/20/2024 8:37 AM T [facility] OSMOLALITY (CALC) 278 MOSM/KG 025 8:37 AM T [facility] Comment:REFERENCE RANGE NOT ESTABLISHED GFR ESTIMATE >90 >89 ML/MIN/1. 73 M2 10/20/2024 8:37 AM CDT [facility] GFR NOTES GFR REFERENCE S: 10/20/2024 8:37 AM CDT [facility] Comment: THE ESTIMATED GFR IS CALCULATED [...] Evita Shelley MD LABORATORY Final Resul t [facility] [address] [place] [address], * US OB <14WKS TA+TV (10/19/2024 2:24 [...] 5:11 PM Narrative 10/19/2024 5:[address] PM [address]T [address] [place] [address] EXAMINATION: US OB <14WKS TA+TV INDICATION: AMENORRHEA [...] morphology. Fetus/Embryo: Present. Cardiac activity: 121 bpm. [place] rump length is 0.745 cm corresponding to estimated gestational age of 6 weeks 5 days RIGHT OVARY: Measures 2.8 x 2.5 x 2.0 cm. Normal morphology. Normal color Doppler. LEFT OVARY: Measures 2.4 x 3.1 x 3.7 cm. Normal morphology. Normal color Doppler. OTHER: No free fluid in the cul-de-sac. Procedure Note Parisa Isidro DO - 10/19/2024 [place] [id number] [facility] [place] [address] EXAMINATION: US OB <14WKS TA+TV INDICATION: AMENORRHEA [...] morphology. Fetus/Embryo: Present. Cardiac activity: 121 bpm. [place] rump length is 0.745 cm corresponding to estimated gestational ageof 6 weeks 5 days RIGHT OVARY: Measures 2.8 x 2.5 x 2.0 cm. Normal morphology. Normal colorDoppler. LEFT OVARY: Measures 2.4 x 3.1 x 3.7 cm. Normal morphology. Normal colorDoppler. OTHER: No free fluid in the cul-de-sac. IMPRESSION: 1. Single, living, intrauterine at 6 weeks 5 days (EDD4) on today?s ultrasound. No dating discrepancy with availableclinical dating. 2. Recommend anatomic survey at 20-22 weeks gestational age. Referred By: IVON STANFORD Interpreted By: Parisa Isidro DO, 10/19/2024 5:11 PM Ivon Stanford MD ULTRASOUND Final Result * URINE BACTERIA CULTURE (10/18/2024 4:15 PM CDT) SPEC DESCRIPTION URINE CLEAN CATCH 10/18/2024 4:01 PM CDT [facility] SPECIAL REQUESTS NO SPECIAL REQUEST 10/18/2024 4:01 PM CDT [facility] CULTURE RESULT FEW CONTAMINANTS 10/11 7:29 AM CDT [facility] CULTURE RESULT <10,000 CFU/mL STREPTOCOCCUS AGALACTIAE (GROUP B) 10/22/2024 7:29 AM CDT [facility] CULTURE RESULT BETA STREPTOCOCCUS GROUP B WAS IDENTIFIED AMONG THE FEW CONTAMINANTS. ALTHOUGH FINDINGS ARE CONSISTENT WITH CONTAMINATION, PRESENCE OF BETA STREPTOCOCCUS GROUP B IN A PATIENT OF CHILD BEARING AGE COULD BE POTENTIALLY CLINICALLY SIGNIFICANT. SUSCEPTIBILITIES WERE PERFORMED. 10/22/2024 7:29 AM CDT [facility] URINE SPECIMEN OBTAINED BY CLEAN CATCH [...] MICROBIOLOGY - GENERAL ORDERABL ES Final Result [facility] [address] [place] [address], [phone] [facility] [address] [place] [address], [place] [phone] * SYPHILIS AB (RPR) DIAGNOSTIC WITH CASCADING REFLEX (10/18/2024 4:10 PM CDT) SYPHILIS IGG IGM AB NON-REACTI VE NON-REACTI VE 10/18/2024 9:08 PM CDT [facility] Comment: No serologic evidence of syphilis. No follow-up necessary unless clinically indicated. 10/18/2024 4:10 PM CDT Ivon Stanford MD LABORATORY Final Result Performing Organization Address [facility] Co de Phone Number [facility] [address] [place] [address], [phone] * HIV 1 ANTIGEN(S), WITH HIV-1 AND HIV-2 ANTIBODIES (10/18/2024 4:10 PM CDT) Pathologist [facility] HIV 1/2 AB+ HIV1 P24 AG NON-REACTI VE NON-REACTI VE 10/18/2024 9:36 PM CDT [facility] Comment:HIV 1 p24 Ag and HIV 1/ HIV 2 Ab not detected. 10/18/2024 4:10 PM CDT Ivon Stanford MD LABORATORY Final Result Performing Organization Address City/[facility]/ZIP Co de Phone Number [facility] [address] [place] [address], [place] [phone] * VARICELLA ZOSTER IGG (10/18/2024 4:10 PM CDT) Pathologist [facility] VARICELLA ZOSTER IGG EIA POSITIVE 10/19/2024 1:44 PM CDT [facility] Comment:IN THE ABSENCE OF AC [place] SYMPTOMS, A POSITIVE RESULT SUGGESTS PAST IMMUNITY. 10/18/2024 4:10 PM CDT Ivon Stanford MD LABORATORY Final Result Performing Organization Address City/[facility]/ZIP Co de Phone Number [facility] [address] [place] [address], [phone] * RUBELLA IGG (10/18/2024 4:10 PM CDT) RUBELLA IGG AB POSITIVE 10/19/2024 1:43 PM CDT [facility] Comment:IN THE ABSENCE OF AC [place] SYMPTOMS, A POSITIVE RESULT SUGGESTS PAST IMMUNITY. 10/18/2024 4:10 PM CDT Ivon Stanford MD LABORATORY Final Result Performing Organization Address [facility] Co de Phone Number [facility] [address] [place] [address], [phone] * MISCELLANEOUS LAB TEST (10/18/2024 4:10 PM CDT) Only the most recent of2 resultswithin the time period is included. TEST NAME: [id number] PARVOVIRUS B19 ANTIBODIES 10/18/2024 4:20 PM CDT [facility] SPECIMEN TYPE SERUM ROOM TEMP 10/18/2024 4:20 PM CDT [facility] TEST RESULT: Flex[employer] 1 10/20/2024 8:19 PM CDT [employer] [facility]EL[facility] Comment: Flexitest 1 Parvovirus B19 Antibodies [...] Parvovirus B19 DNA, PCR. [facility], [employer] [facility], [address] [place] [address] Ja Portillo M.D., Ph.D., Director of Laboratories , CLIA [id number] 10/18/2024 4:10 PM CDT Ivon Stanford MD LABORATORY Final Result Performing Organization Address [facility]/ZIP Co de Phone Number [employer] [address] , [place] [phone] [facility] [address] [place] [id number], [place] [phone] * HEPATITIS B SURFACE AG, EIA (10/18/2024 4:10 PM CDT) Pathologist [facility] HEPATITIS B SURFACE AG NON-REACTI VE NON-REACTI VE 10/18/2024 7:29 PM CDT [facility] Comment:HBsAg NOT DETECTED. 10/18/2024 4:10 PM CDT Ivon Stanford MD LABORATORY Final Result Performing Organization Address City/[facility]/ZIP Co de Phone Number [facility] [address] [place] [address], [place] [phone] * (ABNORMAL) CBC, AUTO, NO DIFF (10/18/2024 4:10 PM CDT) WBC 8.67 4.00 - 10.80 x10'3/uL 10/18/2024 4:25 PM CDT [facility] RBC 4.01(L) 4.10 - 5.40 x10'6/uL 10/18/2024 4:25 PM CDT [facility] HGB 11.8(L) 12.0 - 16.0 G/DL 10/18/2024 4:25 PM CDT [facility] HCT 35.1(L) 36.0 - 47.0 % 10/18/2024 4:25 PM CDT [facility] MCV 87.5 78.0 - 100.0 FL 10/18/2024 4:25 PM CDT [facility] MCH 29.4 27.0 - 31.0 PG 10/18/2024 4:25 PM CDT [facility] MCHC 33.6 33.0 - 36.0 G/DL 10/18/2024 4:25 PM CDT [facility] RDW 12.7 11.5 - 14.5 % 10/18/2024 4:25 PM CDT [facility] PLT 300 150 - 350 x10'3/uL 10/18/2024 4:25 PM CDT [facility] MPV 10.2 7.4 - 10.4 FL 10/18/2024 4:25 PM CDT [facility] 10/18/2024 4:10 PM CDT Ivon Stanford MD LABORATORY Final Result [facility] [place] [address], * PROGESTERONE (09/27/2024 4:42 PM CDT) Only the most recent of3 resultswithin the time period is included. PROGESTERONE 14.0 NG/ML 09/27/2024 7:53 PM CDT [facility] Comment: FOLLIC PHASE: 0.2 TO 1.7 ng/mL LUTEAL PHASE: 2.3 TO 24.2 ng/mL POST MENAPAUSAL: <0.2 TO 0.9 ng/mL 1ST TRIMESTER: 11.4 TO 41.0 ng/mL 2ND TRIMESTER: 13.9 TO 156.0 ng/mL 3RD TRIMESTER: 51.4 TO >200.0 ASSAY PERFORMED BY CHEMILUMINESCENCE METHODOLOGY USING [employer] REAGENT. PATIENT RESULTS DETERMINED BY ASSAYS USING DIFFERENT MANUFACTURERS FOR METHODS MAY NOT BE COMPARABLE. 09/27/2024 4:42 PM CDT Mony Dobbs ST[facility] D[facility] LABORAT[facility] Final Resul t [facility] [address] [place] [address], [id number] * US PELVIC NON OB COMP TA+TV (09/21/2024 2:15 PM CDT) Anatomical Region Laterality Modality Pelvis Ultrasound 09/21/2024 2:42 PM CDT Impressions 09/21/2024 2:44 PM CDT IMPRESSION: Essentially unremarkable. Ordered By: MONY DOBBS Interpreted By: Roman Harman MD, 09/21/2024 2:42 PM Narrative 09/21/2024 2:44 PM [address]T [address] [place] [address] Examination: Transabdominal and transvaginal pelvic ultrasound. Exam [...] Procedure Note Roman Harman MD - 09/21/[address] [place] [address] Examination: Transabdominal and transvaginal pelvic ultrasound. Exam [...] Roman Harman MD, 09/21/2024 2:42 PM Mony Dobbs STOCK DIGGER ULTRASOUND Final Resul t from Last 3 Months Insurance [employer] MEDICAID [employer] [facility] ACCESS [facility] AET MEDICAID Care Teams Technical Producer Relationship Specialty [place] [address] [place] [address] [place] [address] PCP - General FAMILY PRACTICE 11/17/24
--- NOTE | 2024-12-03 07:53 | PM.IMHP ---
H&P: HPI History of Present Illness Date/Time: 12/03/24 07:53 Chief Complaint: spontaneous missed Narrative: 24-year-old female who presents for suction D&C after spontaneous missed . Patient had a pelvic ultrasound that confirmed an intrauterine . Patient was noted to have a subchorionic hematoma. She developed some light bleeding. Patient states her bleeding increased and she presented to the emergency room. Patient had repeat ultrasound in the emergency room that did not show intrauterine . Patient continues to have bleeding and passing of clots but states it is slow down significantly. Review of Systems Review of Systems: All systems reviewed & are unremarkable except as noted in HPI and below PMFSH Past Medical History Medical History (Updated 12/03/24 @ 07:54 by Amandeep Stanford MD) Missed ab Social History Social History Smoking status: Light tobacco smoker Alcohol intake: former Substance use: never Substance use type: does not use Do You Feel Safe in your Home?: Yes Lack of Transportation: No Lack of Food: Never True Current Housing: I Have Housing Concerned About Future Housing: No Difficulty Paying Gas/Electric Bills: No Difficulty Paying for Meds: No Currently Unemployed: No Education: Associate Degree Difficulty w/ Childcare or Family Care: No Living arrangements: with family Occupation/Education: occupation Gender identity (if verbalized by the patient): Female Sexual Orientation (if Verbalized by the Patient): Straight or Heterosexual Spiritual care concerns: No Meds Home Medications and Allergies Home Medications ?Medication ?Instructions ?Recorded ?Confirmed ?Type No Home Medications 12/01/24 12/01/24 History Allergies Allergy/AdvReac Type Severity Reaction Status Date / Time No Known Allergies Allergy Verified 12/01/24 09:37 Exam Const: General: comfortable and no acute distress Resp: Effort & Inspection: normal respiratory effort Auscultation: clear to auscultation bilaterally Cardio: Rate: regular rate Rhythm: regular rhythm GI: Inspection: non-distended GI Palp: Yes Soft to palpation, No Tenderness to palpation present (GI) and No Guarding due to palpation present (GI) Auscultation: normal bowel sounds : External Female Exam: normal external appearance Speculum Exam - Vagina: normal appearance of the vagina Speculum Exam - Cervix: normal appearance of the cervix, Cervical os closed, Abnormal cervical discharge present and nontender Bimanual exam- vagina & uterus: normal bimanual exam, No Cervical tenderness present and non-tender Bimanual Exam- Adnexa, other: normal adnexae OB/external & speculum: no bleeding Skin: General skin exam: normal color Neuro: General: gait normal Speech: normal speech Extrem: General: normal to inspection Psych: Mental Status: mental status grossly normal Affect: normal affect Assessment and Plan Assessment and plan (1) Missed ab: Code(s): O02.1 - Missed Status: Acute Assessment and Plan: 24-year-old female who presents for follow-up after spontaneous missed Patient presented to the emergency room yesterday after an increase in vaginal bleeding Patient had previously had an ultrasound confirmed intrauterine Repeat ultrasound in the Emergency showed no signs of intrauterine Patient continues to have bleeding but states that is stable Management options reviewed with patient Discussed observation versus medical management versus D&C She prefers to proceed with surgical management via D&C Risks and benefits reviewed known Rh+ Will plan for suction D&C (2) Retained products of conception: Status: Acute
[2024-12-03 10:05] VITALS: BP 113/64; PULSE 83; RESP 16; TEMP 37; O2SAT 100
[2024-12-03] MEDS: ACETAMINOPHEN 500 MG TABLET 1000 MG PO (10:50)
--- NOTE | 2024-12-03 11:39 | P.PNAN_ITS ---
Anes - Initial Pre Proc Eval Procedure: Operation Date: 12/03/24 12:00 Proposed Procedures p Suction Dilatation and Curettage - Amandeep Stanford MD Date/Time: 12/03/24 11:39 Surgeon: Amandeep Stanford MD Pre Op Diagnosis: missed AB Patient Data Age: 24 Gender: F Height: 1.73 m Weight: 61.5 kg Last Vital Signs Temp 37.0 C 12/03/24 10:05 Pulse 83 12/03/24 10:05 Resp 16 12/03/24 10:05 BP 113/64 12/03/24 10:05 Pulse Ox 100 12/03/24 10:05 O2 Del Method Room Air 12/03/24 10:05 Allergies Allergy/AdvReac Type Severity Reaction Status Date / Time No Known Allergies Allergy Verified 12/01/24 09:37 Home Medications ?Medication ?Instructions ?Recorded ?Confirmed ?Type No Home Medications 12/01/24 12/01/24 H istory Patient hx anesthesia problems: none Family hx anesthesia problems: none Results Review: All pre-operative results and documents have been reviewed as part of the pre- operative evaluation. [facility] Past Medical History Medical History Missed ab Social History Social History Smoking status: Light tobacco smoker Alcohol intake: former Substance use: never Substance use type: does not use Do You Feel Safe in your Home?: Yes Lack of Transportation: No Lack of Food: Never True Current Housing: I Have Housing Concerned About Future Housing: No Difficulty Paying Gas/Electric Bills: No Difficulty Paying for Meds: No Currently Unemployed: No Education: Associate Degree Difficulty w/ Childcare or Family Care: No Living arrangements: with family Occupation/Education: occupation Gender identity (if verbalized by the patient): Female Sexual Orientation (if Verbalized by the Patient): Straight or Heterosexual Spiritual care concerns: No Anes - Eval Final PreProcedure Day of Procedure 12/03/24 11:39 Patient weight: normal Heart: regular rate and rhythm Lungs: clear to auscultation Airway: Mallampati scale class II Neurological: alert and oriented Last oral intake: >/= 8 hours ASA classification: II Emergent: no Anesthetic plan: proceed Anesthesia type and monitoring: general GIVS and standard monitoring Results Review: All pre-operative results and documents have been reviewed as part of the pre- operative evaluation. Informed Consent: The patient's anesthetic plan and its attendant risks and benefits were discussed with the patient/family/POA. Questions were solicited and answers provided to the satisfaction of the patient/family/POA.
--- NOTE | 2024-12-03 11:44 | WPDHPUPDATE1 ---
History and Physical Update Update Date/Time: 12/03/24 11:44 History and Physical has been reviewed, including an updated exam of the patient. There are NO changes in the patient's condition. Risks, benefits, and alternatives have been discussed and questions answered. Patient agrees to proceed with procedure.
[2024-12-03] MEDS: DOXYCYCLINE IV 100 MG in SODIUM CHLORIDE 0.9% IV 100 ML IVPB (11:53)
--- NOTE | 2024-12-03 12:04 | S_PTH ---
PATIENT: Aliya Nguyễn LOC: [facility] U#:[id number] AGE/SX: 24/F ROOM: RE12/03/[address]: Amandeep Stanford MD : 2000 BED: DIS: 12/03/2024 SPEC #: [id number] RECD: 12/03/24 13:35 STATUS: ANTONELLA REQ #: [id number] YENNIFER: 12/03/24 12:[address]: Amandeep Stanford DEPT: [facility] Surgical RECD BY: Shalini Benton ENTERED: 12/03/24 13:36 SP TYPE: Surgical OTHR DR: GROCERY CLERK STOCKING PHYSICIAN Tissues: A - Uterine Contents Procedures: Hematoxylin and Eosin Stain Gross and Microscopic Level 4
--- NOTE | 2024-12-03 12:11 | W.PM.PROC2 ---
Procedure Note - Detailed Date of Procedure 12/03/24 Pre-op Diagnosis missed AB Post-op Diagnosis Same Procedure Performed Suction Dilation & curettage Surgeon Amandeep Stanford MD Anesthesia General Indications spontaneous missed on pelvic US Findings intrauterine products of conception Description of Procedure The patient was taken to the operating room after a missed had been noted on on transvaginal ultrasound. The risks, benefits and alternatives of the procedure were reviewed with the patient and informed consent was obtained. The patient was taken to the OR and anesthesia was noted to be adequate. The patient was placed in the dorsolithotomy position. Pelvic exam was performed with findings noted above. The patient was prepped and draped in the usual sterile fashion. Sterile speculum was placed in the vagina and the cervix was grasped with a tenaculum. The cervix was dilated further to allow for passage of a 8 mm suction curette. The 8 mm suction curette was gently advanced to the fundus, suction was activated, and the tip was rotated while being withdrawn to clear the uterus of products. This suction process was repeated 3 additional times due to the quantity of material in the uterus. The sharp curette was introduced and advanced to the fundus to remove any remaining products. The suction curette was reintroduced one final time to ensure all products had been removed. The tenaculum was removed. Good hemostasis was noted. Instrument, sponge, and sharp counts were correct. Patient tolerated the procedure well and was taken to the recovery room in stable condition. Estimated Blood Loss 10 Drains No Packing No Pathology Yes (products of conception ) Complications No immediate complications Condition Stable Disposition PACU [facility] Billing Surgery - Charge Forward: Surgery Billing
[2024-12-03 12:13] VITALS: BP 105/52; PULSE 78; RESP 16
[2024-12-03] MEDS: LACTATED RINGERS 1,000 ML 30 ML IV CONT (12:13)
[2024-12-03 12:35] VITALS: BP 108/59; PULSE 91
[2024-12-03] MEDS: DOXYCYCLINE HYCLATE 100 MG TABLET 200 MG PO (12:47)
== END 2024-12-03 13:10 | disposition home or self-care (01) ==
PROVIDERS: Visit Provider Student in an Organized Health Care Education/Training Program
PROC: (CPT 59820; principal; 2024-12-03 12:00)
DX: O02.1 Missed abortion (principal); Z87.891 Personal history of nicotine dependence
CPT/HCPCS: 59820; 88305; A9270; J2250; J2704; J3010; J7120

== ENCOUNTER 2024-12-20 11:32 | Outpatient (CLI) | payer OTHER, SELFPAY ==
[2024-12-20 12:13] LABS: Hemoglobin A1C 4.4 % (<5.7)
--- OUTSIDE RECORDS SUMMARY | 2024-12-20 12:20 | XMS_ITS | Clinical Summary ---
Author Organization [facility] Address [address] [place] [id number] Care Team Providers Care Sales Representative Advertising Name Role Phone Laurent Barros MD Primary Care Provider [phone] Allergies No known active allergies Medications vitamin, low iron, ( VITAMIN WITH IRON) 27-0.8 MG tablet Take 1 tablet by mouth daily. Active progesterone (ENDOMETRIN) [address] 1 tablet (100 mg total) vaginally 2 (two) times daily. Active Encounters Date Type Department Care Team Description 11/26/2024 1:30 PM CDT - 11/26/2024 11:59 PM CDT Hospital Encounter [facility] [address] [place] [address] Ivon Stanford MD Discharge Disposition: Home or Self Care (Routine Discharge) 11/26/2024 1:30 PM CDT Hospital Encounter [facility] [place] [address] [place] [address] Ivon Stanford MD Discharge Disposition: Home or Self Care (Routine Discharge) 11/26/2024 Orders [place] [facility] [place] [address] Ivon Stanford MD 11/26/2024 Travel 11/17/2024 5:53 AM CDT - 11/17/2024 10:20 AM CDT Emergency [facility] [place] [address] Pradeep Reyes MD Vaginal Bleeding Discharge Disposition: Home or Self Care (Routine Discharge) 11/17/2024 Travel 10/20/2024 7:17 AM CDT - 10/20/2024 10:00 AM CDT Emergency [facility] [address] [place] [address] Evita Shelley MD Vaginal Bleeding Discharge Disposition: Home or Self Care (Routine Discharge) 10/20/2024 Travel 10/19/2024 1:00 PM CDT - 10/19/2024 11:59 PM CDT Hospital Encounter [facility] [address] [place] [address] Ivon Stanford MD Discharge Disposition: Home or Self Care (Routine Discharge) 10/18/2024 3:44 PM CDT - 10/18/2024 11:59 PM CDT Hospital Encounter [facility] [place] [address] Ivon Stanford MD Discharge Disposition: Home or Self Care (Routine Discharge) 10/18/2024 Orders Only [place] [id number] [place] [place] [address] Ivon Stanford MD 10/18/2024 Travel 10/05/2024 10:14 AM CDT - 10/05/2024 11:59 PM CDT Hospital Encounter [place] [id number] [place] [address] Nevaeh Rivera MD Discharge Disposition: Home or Self Care (Routine Discharge) 10/05/2024 Orders Only [facility] [place] [address] Nevaeh Rivera MD 10/05/2024 Travel 09/28/2024 12:40 PM CDT - 09/28/2024 11:59 PM CDT Hospital Encounter [place] [id number] [place] [address] Mony Dobbs NP Discharge Disposition: Home or Self Care (Routine Discharge) 09/28/2024 Orders Only [facility] [address] [place] [address] Mony Dobbs, BUSINESS ANALYST INTERN 09/27/2024 4:34 PM CDT - 09/27/2024 11:59 PM CDT Hospital Encounter [facility] [address] [place] [address] Mony Dobbs NP Discharge Disposition: Home or Self Care (Routine Discharge) 09/27/2024 Travel 09/25/2024 11:25 AM CDT - 09/25/2024 11:59 PM CDT Hospital Encounter [facility] [address] [place] [address] Mony Dobbs NP Discharge Disposition: Home or Self Care (Routine Discharge) 09/25/2024 Orders Only [address] [place] [address] Mony Dobbs NP 09/25/2024 Travel 09/21/2024 1:14 PM CDT - 09/21/2024 11:59 PM CDT Hospital Encounter [facility] [place] [address] Mony Dobbs NP Discharge Disposition: Home or Self Care (Routine Discharge) 09/21/2024 Travel from Last 3 Months Family History [...] Sex Assigned at Female 03/17/2024 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 Sex 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 Gender Identity Not on file Sexual Orientation [...] 11/26/2024 2:24 PM CDT Incomplete spontaneous (HHS/HCC) HCG QN Routine 11/26/2024 1:37 PM CDT Spontaneous without complications, incomplete (HHS/HCC) US OB TRANSVAG STAT 11/17/2024 9:07 AM CDT TYPE & SCREEN STAT 11/17/2024 6:15 AM CDT POCT GLUCOSE - DOCKED DEVICE Routine 11/17/2024 6:10 AM CDT HC HCG QN STAT 11/17/2024 6:07 AM CDT HC COMPREHENSIVE METABOL PANEL STAT 11/17/2024 6:07 AM CDT HC PTT STAT 11/17/2024 6:07 AM CDT HC PROTHROMBIN TIME (PT) STAT 11/17/2024 6:07 AM CDT HC CBC AUTO W/AUTO DIFF STAT 11/17/2024 6:07 AM CDT US OB TRANSVAG STAT 10/20/2024 9:00 AM CDT HC URINALYSIS AUTO W/MICRO STAT 10/20/2024 7:50 AM CDT HC HCG QN STAT 10/20/2024 7:46 AM CDT HC BASIC METABOLIC PANEL STAT 10/20/2024 7:46 AM CDT HC CBC AUTO W/AUTO DIFF STAT 10/20/2024 7:46 AM CDT US OB <14WKS TA+TV Routine 10/19/2024 2: 24 PM CDT 1st trimester screening (HHS/HCC) Encounter for supervision of normal first in first trimester (HHS/HCC) HC CULTURE URINE W/COLONY CT Routine 10/18/2024 4:15 PM CDT Amenorrhea, unspecified TYPE & SCREEN Routine 10/18/2024 4:10 PM CDT Amenorrhea, unspecified HC CBC W/O DIFF Routine 10/18/2024 4:10 PM CDT Amenorrhea, unspecified HC HCG QN Routine 10/18/2024 4:10 PM CDT Amenorrhea, unspecified SYPHILIS AB (DIAGNOSTIC) WITH CASCADING REFLEX Routine 10/18/2024 4:10 PM CDT Amenorrhea, unspecified HC VARICELLA ZOSTER AB Routine 4:10 PM CDT Amenorrhea, unspecified MISCELLANEOUS LAB TEST Routine 4:10 PM CDT Amenorrhea, unspecified HC RUBELLA AB Routine 10/18/2024 4:10 PM CDT Amenorrhea, unspecified HC HIV-1 AG W/HIV-1 & HIV-2 AB Routine 10/18/2024 4:10 PM CDT Amenorrhea, unspecified HC EIA QL HEPATITIS B AG Routine 10/18/2024 4:10 PM CDT Amenorrhea, unspecified MISCELLANEOUS LAB TEST Routine 4:10 PM CDT Amenorrhea, unspecified HC HCG QN Routine 10/05/2024 10:17 AM CDT Back pain affecting in first trimester (HHS/HCC) HC HCG QN Routine 09/28/2024 12:46 PM CDT History of miscarriage HC PROGESTERONE Routine 09/27/2024 4:42 PM CDT History of miscarriage HC HCG QN Routine 09/27/2024 4:42 PM CDT History of miscarriage HC PROGESTERONE Routine 09/25/2024 11:39 AM CDT History of miscarriage HC HCG QN Routine 09/25/2024 11:39 AM CDT History of miscarriage US PELVIC NON OB COMP TA+TV Routine 09/21/2024 2:15 PM CDT Ovarian cyst, right from Last 3 Months Results * US [...] 3:11 PM Narrative 11/26/2024 3:[address] [place] [address] Examination: Pelvic ultrasound. Exam time: 1347 hours. [...] Procedure Note Roman Harman MD - 11/26/[address] [place] [address] Examination: Pelvic ultrasound. Exam time: 1347 hours. [...] 1:37 PM CDT) Only the most recent of8 resultswithin the time period is included. HCG QUANTITATIVE 237(H) 0.0 - 6.0 MIU/ML 11/26/2024 2:05 PM CDT [facility] Comment: WEEKS OF REFERENCE RANGES [...] us Ivon Stanford MD LABORATORY Final Result [facility] [address] [place], [place] [address] [phone] * US OB TRANSVAG (11/17/2024 9:07 AM [...] 9:53 AM Narrative 11/17/2024 9:57 AM CDT [address] [place] [address] Examination: OB ultrasound. Exam time: 0833 hours. [...] Procedure Note Roman Harman MD - 11/17/[address] [place] [address] Examination: OB ultrasound. Exam time: 0833 hours. [...] ovaries. Ordered By: KLEBER NOEL Interpreted By: Rmoan Harman MD, 11/17/2024 9:53 AM Kleber Noel DO ULTRASOUND Final Result * TYPE AND SCREEN (11/17/2024 6:15 AM CDT) Only the most recent of2 resultswithin the time period is included. ABO/RH O POSITIVE 11/17/2024 7:24 AM CDT [facility] ANTIBODY SCREEN NEGATIVE 11/17/2024 7:24 AM CDT [facility] SAMPLE EXPIRATION 11/20/2024,2 359 11/17/2024 7:24 AM CDT [facility] 11/17/2024 6:15 AM CDT Kleber Noel DO BLOOD BANK TEST ORDERABLES F inal Result [facility] [place] [address], * (ABNORMAL) POCT glucose (11/17/2024 6:10 AM CDT) GLUCOSE POC 140(H) 70 - 99 MG/DL 11/17/2024 6:12 AM CDT [facility] 11/17/2024 6:10 AM CDT Attending Physician Emergency MD POCT ORDERABLES - DEVICE Final Result [facility] [address] [place] [address], * (ABNORMAL) PARTIAL THROMBOPLASTIN TIME,PTT (11/17/2024 6:07 AM CDT) PTT 20.4(L) 25.1 - 36.5 SEC 11/17/2024 6:23 AM CDT [facility] 11/17/2024 6:07 AM CDT us Kleber Noel DO LABORATORY Final Result Performing Organization Address [facility]/ZIP Co de Phone Number [facility] [address] [place] [phone], * PROTIME/INR, VENOUS (11/17/2024 6:07 AM CDT) PROTIME 11.4 9.4 - 12.5 SEC 11/17/2024 6:23 AM CDT [facility] INR 1.0 0.8 - 1.0 11/17/2024 6:23 AM CDT [facility] 11/17/2024 6:07 AM CDT us Kleber Noel DO LABORATORY Final Result Performing Organization Address City/[facility]/ZIP Co de Phone Number [facility] [address] [place] [id number], * (ABNORMAL) COMPREHENSIVE METABOLIC PANEL (11/17/2024 6:07 AM CDT) SODIUM S/P/B 137 136 - 145 MMOL/L 11/17/2024 7:06 AM CDT [facility] POTASSIUM S/P/B 3.8 3.5 - 5.1 MMOL/L 11/17/2024 7:06 AM CDT [facility] CHLORIDE S/P/B 102 98 - 107 MMOL/L 11/17/2024 7:06 AM [facility] CO2 23.9 21.0 - 32.0 MMOL/L 11/17/2024 7:06 AM [facility] GLUCOSE 154(H) 70 - 99 MG/DL 11/17/2024 7:06 AM [facility] Comment: FASTING GLUCOSE 100 TO 125 MG/DL IS CONSISTENT WITH IMPAIRED FASTING GLUCOSE. FASTING GLUCOSE >125 MG/DL IS CONSISTENT WITH DIABETES. RANDOM GLUCOSE >200 MG/DL WITH HYPERGLYCEMIC SYMPTOMS IS CONSISTENT WITH DIABETES. PER ADA GUIDELINES BUN 13 6 - 24 MG/DL 11/17/2024 7:06 AM [facility] CREATININE S/P/B 0.78 0.55 - 1.02 MG/DL 11/17/2024 7:06 AM [facility] CALCIUM S/P/B 8.8 8.4 - 10.5 MG/DL 11/17/2024 7:06 AM [facility] BILIRUBIN TOTAL S/P/B 0.2 0.2 - 1.0 MG/DL 11/17/2024 7:06 AM [facility] Comment: THIS ASSAY IS NOT RECOMMENDED FOR PATIENTS UNDERGOING TREATMENT WITH ELTROMBOPAG DUE TO THE POTENTIAL FOR FALSELY ELEVATED RESULTS. ALKALINE PHOSPHATASE S/P/B 32(L) 52 - 144 U/L 11/17/2024 7:06 AM [facility] AST 16 15 - 37 U/L 11/17/2024 7:06 AM [facility] ALT 19 14 - 59 U/L 11/17/2024 7:06 AM [facility] TOTAL PROTEIN S/P/B 6.2(L) 6.4 - 8.2 G/DL 11/17/2024 7:06 AM [facility] ALBUMIN S/P/B 3.1(L) 3.4 - 5.0 G/DL 11/17/2024 7:06 AM [facility] ANION GAP 11.1 5.0 - 15.0 MMOL/L 11/17/2024 7:06 AM [facility] OSMOLALITY (CALC) 287 MOSM/KG 025 7:06 AM CDT [facility] Comment:REFERENCE RANGE NOT ESTABLISHED GFR ESTIMATE >90 >89 ML/MIN/1. 73 M2 11/17/2024 7:06 AM CDT [facility] GFR NOTES GFR REFERENCE S: 11/17/2024 7:06 AM CDT [facility] Comment: THE ESTIMATED GFR IS [...] us Kleber Noel DO LABORATORY Final Result [facility] [address] [place] [address], * (ABNORMAL) CBC W/DIFF AUTOMATED (11/17/2024 6:07 AM CDT) Only the most recent of2 resultswithin the time period is included. WBC 12.32(H) 4.00 - 10.80 x10'3/uL 11/17/2024 6:13 AM CDT [facility] RBC 3.51(L) 4.10 - 5.40 x10'6/uL 11/17/2024 6:13 AM CDT [facility] HGB 10.3(L) 12.0 - 16.0 G/DL 11/17/2024 6:13 AM CDT [facility] HCT 31.1(L) 36.0 - 47.0 % 11/17/2024 6:13 AM CDT [facility] MCV 88.6 78.0 - 100.0 FL 11/17/2024 6:13 AM CDT [facility] MCH 29.3 27.0 - 31.0 PG 11/17/2024 6:13 AM CDT [facility] MCHC 33.1 33.0 - 36.0 G/DL 11/17/2024 6:13 AM CDT [facility] RDW 13.0 11.5 - 14.5 % 11/17/2024 6:13 AM CDT [facility] PLT 322 150 - 350 x10'3/uL 11/17/2024 6:13 AM CDT [facility] MPV 10.2 7.4 - 10.4 FL 11/17/2024 6:13 AM CDT [facility] CBC COMMENT NORMAL REFERENCE RANGE NOT ESTABLISHED FOR THE PROPORTIONAL LEUKOCYTE DIFFERENTIAL. 11/17/2024 6:13 AM CDT [facility] NEUTROPHILS % 73.1 % 11/17/2024 6:13 AM CDT [facility] LYMPHOCYTES % 20.1 % 11/17/2024 6:13 AM CDT [facility] MONOCYTES % 4.9 % 11/17/2024 6:13 AM CDT [facility] EOSINOPHILS % 0.8 % 11/17/2024 6:13 AM CDT [facility] BASOPHILS % 0.7 % 11/17/2024 6:13 AM CDT [facility] IMMATURE GRANS % 0.4 % 11/18/19 6:13 AM CDT [facility] NRBC % 0.0 % 11/17/2024 6:13 AM CDT [facility] ABS. NEUTROPHILS 9.00(H) 1.60 - 8.30 x10'3/uL 11/17/2024 6:13 AM CDT [facility] ABS. LYMPHOCYTES 2.48 0.80 - 4.70 x10'3/uL 11/17/2024 6:13 AM CDT [facility] ABS. MONOCYTES 0.60 0.00 - 1.50 x10'3/uL 11/17/2024 6:13 AM CDT [facility] ABS. EOSINOPHILS 0.10 0.00 - 0.40 x10'3/uL 11/17/2024 6:13 AM CDT [facility] ABS. BASOPHILS 0.09 0.00 - 0.20 x10'3/uL 11/17/2024 6:13 AM CDT [facility] ABS. IMMATURE GRANULOCYTES 0.05(H) 0.00 - 0.03 x10'3/uL 11/17/2024 6:13 AM CDT [facility] ABS. NUCLEATED RBC'S 0.00 0.00 - 0.01 x10'3/uL 11/17/2024 6:13 AM CDT [facility] 11/17/2024 6:07 AM CDT Kleber Noel DO LABORATORY Final Result [facility] [address] [place] [address], * (ABNORMAL) URINALYSIS (10/20/2024 7:50 AM CDT) COLOR (U) STRAW 10/20/2024 9:25 AM CDT [facility] TRANSPARENCY SLIGHTLY CLOUDY 025 9:25 AM CDT [facility] SPECIFIC GRAVITY (U) 1.020 1.000 - 1.025 10/20/2024 9:25 AM CDT [facility] U PH 7.5 5.0 - 8.0 10/20/2024 9:25 AM CDT [facility] LEUKOCYTES (U) NEGATIVE NEGATIVE 10/20/2024 9:25 AM CDT [facility] NITRITES NEGATIVE NEGATIVE 10/20/2024 9:25 AM CDT [facility] PROTEIN RANDOM (U) NEGATIVE NEGATIVE 10/20/2024 9:25 AM CDT [facility] GLUCOSE (U) NEGATIVE NEGATIVE 10/20/2024 9:25 AM CDT [facility] KETONES MG/DL (U) NEGATIVE NEGATIVE 10/20/2024 9:25 AM CDT [facility] UROBILINOGEN 0.2 <1.0 EU/DL 10/20/2024 9:25 AM CDT [facility] BILIRUBIN (U) NEGATIVE NEGATIVE 10/20/2024 9:25 AM CDT [facility] BLOOD (U) NEGATIVE NEGATIVE 10/20/2024 9:25 AM CDT [facility] WBC/HPF NONE SEEN(A) 0 - 5 /HPF 10/20/2024 9:25 AM CDT [facility] EPI/LPF OCCASIONAL /LPF 10/20/2024 9:25 AM CDT [facility] MUCUS PRESENT 10/20/2024 9:25 AM CDT [facility] AMORPHOUS SEDIMENT PHOSPHATES 10/20/2024 9:25 AM CDT [facility] COMMENT (U) OCCASIONAL TRANSITIONAL EPITHELIAL CELLS. 10/20/2024 9:25 AM CDT [facility] URINE SPECIMEN OBTAINED BY CLEAN CATCH PROCEDURE / Unknown 10/20/2024 7:50 AM CDT us Evita Shelley MD URINE ORDERABLES Final Resu lt [facility] [address] [place] [address], * (ABNORMAL) BASIC METABOLIC PANEL (10/20/2024 7:46 AM CDT) SODIUM S/P/B 135(L) 136 - 145 MMOL/L 10/20/2024 8:37 AM CDT [facility] POTASSIUM S/P/B 4.1 3.5 - 5.1 MMOL/L 10/20/2024 8:37 AM CDT [facility] CHLORIDE S/P/B 102 98 - 107 MMOL/L 10/20/2024 8:37 AM CDT [facility] CO2 25.6 21.0 - 32.0 MMOL/L 10/20/2024 8:37 AM T [facility] GLUCOSE 86 70 - 99 MG/DL 10/20/2024 8:37 AM T [facility] Comment: FASTING GLUCOSE 100 TO 125 MG/DL IS CONSISTENT WITH IMPAIRED FASTING GLUCOSE. FASTING GLUCOSE >125 MG/DL IS CONSISTENT WITH DIABETES. RANDOM GLUCOSE >200 MG/DL WITH HYPERGLYCEMIC SYMPTOMS IS CONSISTENT WITH DIABETES. PER ADA GUIDELINES BUN 10 6 - 24 MG/DL 10/20/2024 8:37 AM T [facility] CREATININE S/P/B 0.49(L) 0.55 - 1.02 MG/DL 10/20/2024 8:37 AM T [facility] CALCIUM S/P/B 9.0 8.4 - 10.5 MG/DL 10/20/2024 8:37 AM T [facility] ANION GAP 7.4 5.0 - 15.0 MMOL/L 10/20/2024 8:37 AM [facility] OSMOLALITY (CALC) 278 MOSM/KG 025 8:37 AM [facility] Comment:REFERENCE RANGE NOT ESTABLISHED GFR ESTIMATE >90 >89 ML/MIN/1. 73 M2 10/20/2024 8:37 AM T [facility] GFR NOTES GFR REFERENCE S: 10/20/2024 8:37 AM T [facility] Comment: THE ESTIMATED GFR IS [...] Evita Shelley MD LABORATORY Final Resul t [facility] [address] [place] [address], * US OB <14WKS TA+TV (10/19/2024 2:24 [...] 5:11 PM Narrative 10/19/2024 5:[address] [place] [address] EXAMINATION: US OB <14WKS TA+TV INDICATION: AMENORRHEA [...] morphology. Fetus/Embryo: Present. Cardiac activity: 121 bpm. Ponderosa rump length is 0.745 cm corresponding to estimated gestational age of 6 weeks 5 days RIGHT OVARY: Measures 2.8 x 2.5 x 2.0 cm. Normal morphology. Normal color Doppler. LEFT OVARY: Measures 2.4 x 3.1 x 3.7 cm. Normal morphology. Normal color Doppler. OTHER: No free fluid in the cul-de-sac. Procedure Note Parisa Isidro DO - 10/19/2024 [facility] [address] [place] [address] EXAMINATION: US OB <14WKS TA+TV INDICATION: AMENORRHEA [...] morphology. Fetus/Embryo: Present. Cardiac activity: 121 bpm. Ponderosa rump length is 0.745 cm corresponding to estimated gestational ageof 6 weeks 5 days RIGHT OVARY: Measures 2.8 x 2.5 x 2.0 cm. Normal morphology. Normal colorDoppler. LEFT OVARY: Measures 2.4 x 3.1 x 3.7 cm. Normal morphology. Normal colorDoppler. OTHER: No free fluid in the cul-de-sac. IMPRESSION: 1. Single, living, intrauterine at 6 weeks 5 days (ED06/09/2025) on today?s ultrasound. No dating discrepancy with availableclinical dating. 2. Recommend anatomic survey at 20-22 weeks gestational age. Referred By: IVON STANFORD Interpreted By: Parisa Isidro DO, 10/19/2024 5:11 PM us Ivon Stanford MD ULTRASOUND Final Result * URINE BACTERIA CULTURE (10/18/2024 4:15 PM CDT) SPEC DESCRIPTION URINE CLEAN CATCH 10/18/2024 4:01 PM CDT [facility] SPECIAL REQUESTS NO SPECIAL REQUEST 10/18/2024 4:01 PM CDT [facility] CULTURE RESULT FEW CONTAMINANTS 10/11 7:29 AM CDT [facility] CULTURE RESULT <10,000 CFU/mL STREPTOCOCCUS AGALACTIAE (GROUP B) 10/22/2024 7:29 AM CDT [facility] CULTURE RESULT BETA STREPTOCOCCUS GROUP B WAS IDENTIFIED AMONG THE FEW CONTAMINANTS. ALTHOUGH FINDINGS ARE CONSISTENT WITH CONTAMINATION, PRESENCE OF BETA STREPTOCOCCUS GROUP B IN A PATIENT OF CHILD BEARING AGE COULD BE POTENTIALLY CLINICALLY SIGNIFICANT. SUSCEPTIBILITIES WERE PERFORMED. 10/22/2024 7:29 AM CDT [facility] URINE SPECIMEN OBTAINED BY CLEAN [...] (group b) VANCOMYCIN LEDY (V ITEK) Sensitive us Ivon Stanford MD MICROBIOLOGY - GENERAL ORDERABL ES Final Result Performing Organization Address [facility] Co de Phone Number [facility] [address] [place] [address], [place] [phone] [facility] [place] [address], * SYPHILIS AB (RPR) DIAGNOSTIC WITH CASCADING REFLEX (10/18/2024 4:10 PM CDT) SYPHILIS IGG IGM AB NON-REACTI VE NON-REACTI VE 10/18/2024 9:08 PM CDT [facility] Comment: No serologic evidence of syphilis. No follow-up necessary unless clinically indicated. 10/18/2024 4:10 PM CDT us Ivon Stanford MD LABORATORY Final Result Performing Organization Address City/[facility] Co de Phone Number [facility] [address] [place] [address], [phone] * HIV 1 ANTIGEN(S), WITH HIV-1 AND HIV-2 ANTIBODIES (10/18/2024 4:10 PM CDT) HIV 1/2 AB+ HIV1 P24 AG NON-REACTI VE NON-REACTI VE 10/18/2024 9:36 PM CDT [facility] Comment:HIV 1 p24 Ag and HIV 1/ HIV 2 Ab not detected. 10/18/2024 4:10 PM CDT us Ivon Stanford MD LABORATORY Final Result Performing Organization Address [facility] Co de Phone Number [facility] [address] [place] [address], [phone] * VARICELLA ZOSTER IGG (10/18/2024 4:10 PM CDT) VARICELLA ZOSTER IGG EIA POSITIVE 10/19/2024 1:44 PM CDT [facility] Comment:IN THE ABSENCE OF AC [place] SYMPTOMS, A POSITIVE RESULT SUGGESTS PAST IMMUNITY. 10/18/2024 4:10 PM CDT us Ivon Stanford MD LABORATORY Final Result Performing Organization Address City/[facility] Co de Phone Number [facility] [address] [place] [address], [place] [phone] * RUBELLA IGG (10/18/2024 4:10 PM CDT) RUBELLA IGG AB POSITIVE 10/19/2024 1:43 PM CDT [facility] Comment:IN THE ABSENCE OF AC TW[place] SYMPTOMS, A POSITIVE RESULT SUGGESTS PAST IMMUNITY. 10/18/2024 4:10 PM CDT us Ivon Stanford MD LABORATORY Final Result [facility] [address] [place] [address], [phone] * MISCELLANEOUS LAB TEST (10/18/2024 4:10 PM CDT) Only the most recent of2 resultswithin the time period is included. TEST NAME: [id number] PARVOVIRUS B19 ANTIBODIES 10/18/2024 4:20 PM CDT [facility] SPECIMEN TYPE SERUM ROOM TEMP 10/18/2024 4:20 PM CDT [facility] TEST RESULT: Flexitest 1 10/20/2024 8:19 PM CDT [place] JUAN MIGUEL MARCELINO Comment: Flexitest 1 Parvovirus B19 Antibodies [...] DNA, PCR. Test Performed by Nehal Penaloza, [address], [address] [place] [address] Ja Portillo M.D., Ph.D., Director of Laboratories , [facility] [id number] 10/18/2024 4:10 PM CDT Ivon Stanford MD LABORATORY Final Result [facility] [address] [place] [address], [place] [phone] [facility] [address] [place] [address], [place] [phone] * HEPATITIS B SURFACE AG, EIA (10/18/2024 4:10 PM CDT) Pathologist [facility] HEPATITIS B SURFACE AG NON-REACTI VE NON-REACTI VE 10/18/2024 7:29 PM CDT [facility] Comment:HBsAg NOT DETECTED. 10/18/2024 4:10 PM CDT us Ivon Stanford MD LABORATORY Final Result [facility] [address] [place] [address], [place] [phone] [id number] * (ABNORMAL) CBC, AUTO, NO DIFF (10/18/2024 4:10 PM CDT) [facility] WBC 8.67 4.00 - 10.80 x10'3/uL 10/18/2024 4:25 PM CDT [facility] RBC 4.01(L) 4.10 - 5.40 x10'6/uL 10/18/2024 4:25 PM CDT [facility] HGB 11.8(L) 12.0 - 16.0 G/DL 10/18/2024 4:25 PM CDT [facility] HCT 35.1(L) 36.0 - 47.0 % 10/18/2024 4:25 PM CDT [facility] MCV 87.5 78.0 - 100.0 FL 10/18/2024 4:25 PM CDT [facility] MCH 29.4 27.0 - 31.0 PG 10/18/2024 4:25 PM CDT [facility] MCHC 33.6 33.0 - 36.0 G/DL 10/18/2024 4:25 PM CDT [facility] RDW 12.7 11.5 - 14.5 % 10/18/2024 4:25 PM CDT [facility] PLT 300 150 - 350 x10'3/uL 10/18/2024 4:25 PM CDT [facility] MPV 10.2 7.4 - 10.4 FL 10/18/2024 4:25 PM CDT [facility] 10/18/2024 4:10 PM CDT us Ivon Stanford MD LABORATORY Final Result [facility] [address] [place] [address], * PROGESTERONE (09/27/2024 4:42 PM CDT) Only the most recent of2 resultswithin the time period is included. PROGESTERONE 14.0 NG/ML 09/27/2024 7:53 PM CDT [facility] Comment: FOLLIC PHASE: 0.2 TO 1.7 ng/mL LUTEAL PHASE: 2.3 TO 24.2 ng/mL POST MENAPAUSAL: <0.2 TO 0.9 ng/mL 1ST TRIMESTER: 11.4 TO 41.0 ng/mL 2ND TRIMESTER: 13.9 TO 156.0 ng/mL 3RD TRIMESTER: 51.4 TO >200.0 ASSAY PERFORMED BY CHEMILUMINESCENCE METHODOLOGY USING SIEMENS DIMENSION VISTA REAGENT. PATIENT RESULTS DETERMINED BY ASSAYS USING DIFFERENT MANUFACTURERS FOR METHODS MAY NOT BE COMPARABLE. 09/27/2024 4:42 PM CDT us Mony Dobbs NP LABORATORY Final Resul t [facility] [address] [place] [address], [place] [phone] [id number] * US PELVIC NON OB COMP TA+TV (09/21/2024 2:15 PM CDT) Anatomical Region Laterality Modality Pelvis Ultrasound 09/21/2024 2:42 PM CDT Impressions 09/21/2024 2:44 PM CDT IMPRESSION: Essentially unremarkable. Ordered By: MONY DOBBS Interpreted By: Roman Harman MD, 09/21/2024 2:42 PM Narrative 09/21/2024 2:44 PM [address]T [address] [place] [address] Examination: Transabdominal and transvaginal pelvic ultrasound. Exam [...] Procedure Note Roman Harman MD - 09/21/[address] [place] [address] Examination: Transabdominal and transvaginal pelvic ultrasound. Exam [...] By: Roman Harman MD, 09/21/2024 2:42 PM us Mony Dobbs BUSINESS ANALYST INTERN ULTRASOUND Final Resul t from Last 3 Months Insurance [facility] MEDICAID InstallMonetizer OPEN ACCESS [facility] MEDICAID Care Teams Sales Representative Advertising Relationship Specialty Start Date End Date Laurent Barros MD [address] [place] [address] PCP - General FAMILY PRACTICE 11/17/24
[2024-12-20 12:46] LABS: Thyroid Stimulating Hormone 1.010 uIU/mL (0.465-4.680)
[2024-12-21 14:08] LABS: Anticardiolipin Ab,IgA,Qn <9 APL U/mL (0-11); Anticardiolipin Ab,IgG,Qn <9 GPL U/mL (0-14); Anticardiolipin Ab,IgM,Qn 10 MPL U/mL (0-12); Beta-2 Glycoprotein I Ab, IgA <9 (0-25); Beta-2 Glycoprotein I Ab, IgG <9 (0-20); Beta-2 Glycoprotein I Ab, IgM <9 (0-32)
== END 2024-12-20 11:33 | disposition home or self-care (01) ==
LOC: ANHLAB 11:34
PROVIDERS: Visit Provider Student in an Organized Health Care Education/Training Program
DX: N96 Recurrent pregnancy loss (principal)
CPT/HCPCS: 36415; 83036; 84443; 86146; 86147